=== PATIENT | male | born 1975 | race Caucasian/White ===

== ENCOUNTER 2019-12-31 10:26 | Inpatient (IN) | payer BC ==
[~2019-12-31] VITALS: Ht 180.3 cm; Wt 85.5 kg
--- NOTE | 2019-12-31 11:06 | NUR ---
Pt was seen at [facility] and they sent him here. Pt states that they told him his urine was okay, other than he was dehydrated.
--- NOTE | 2019-12-31 11:08 | NUR ---
Pt unable to obtain a urine sample at this time.
[2019-12-31] MEDS ORDERED: ketorolac tromethamine 15mg/ml inj. IV ONE (11:10)
[2019-12-31] MEDS ORDERED: normal saline 1000ml 1,000 ML IV ONE (11:10)
[2019-12-31 11:14] LABS: BASOPHILS % (AUTO) 0.3 % (0-1); EOSINOPHILS # (AUTO) 0.1 X10'3 (0-0.9); EOSINOPHILS % (AUTO) 0.9 % (0-6); HEMATOCRIT 44.6 % (42.0-52.0); HEMOGLOBIN 15.5 g/dl (14.0-17.9); LYMPHOCYTES # (AUTO) 1.1 X10'3 (1.1-4.8); LYMPHOCYTES % (AUTO) 9.6 % (21-51); MEAN CORPUSCULAR HEMOGLOBIN 31.5 PG (27.0-31.0); MEAN CORPUSCULAR HGB CONC 34.8 g/dL (33.0-36.5); MEAN CORPUSCULAR VOLUME 90.5 FL (78-98); MEAN PLATELET VOLUME 7.6 FL (7.4-10.4); MONOCYTES # (AUTO) 0.9 X10'3 (0-0.9); MONOCYTES % (AUTO) 7.8 % (2-12); NEUTROPHILS # (AUTO) 9.1 X10'3 (1.8-7.7); NEUTROPHILS % (AUTO) 81.4 % (42-75); PLATELET COUNT 249 X10'3 (140-440); RED BLOOD COUNT 4.93 X10'6 (4.70-6.10); RED CELL DISTRIBUTION WIDTH 12.3 % (11.5-14.5); WHITE BLOOD COUNT 11.2 X10'3 (4.5-11.0)
[2019-12-31 11:37] LABS: ALANINE AMINOTRANSFERASE 77 U/L (12-78); ALBUMIN 4.2 G/DL (3.4-5.0); ALBUMIN/GLOBULIN RATIO 1.1 (1.1-1.5); ALKALINE PHOSPHATASE 75 IU/L (46-116); ANION GAP 12 (8-16); ASPARTATE AMINO TRANSFERASE 28 U/L (10-37); BILIRUBIN,TOTAL 1.2 MG/DL (0.1-1.0); BLOOD UREA NITROGEN 13 MG/DL (7-18); BUN/CREATININE RATIO 10.7 (5.4-32.0); CALCIUM 8.7 MG/DL (8.5-10.1); CHLORIDE 104 MMOL/L (99-107); CREATININE 1.21 MG/DL (0.60-1.10); GLUCOSE 107 MG/DL (70-104); LIPASE 93 U/L (73-393); POTASSIUM 4.3 MMOL/L (3.5-5.1); SODIUM 139 MMOL/L (135-145); TOTAL CARBON DIOXIDE 22.8 MMOL/L (24-32); eGFR 65 ML/MIN
[2019-12-31] MEDS ORDERED: iohexol 300mg/ml 100ml inj. ONE (11:40)
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
[2019-12-31] MEDS ORDERED: metroNIDAZOLE-Flagyl 500mg/NS 100 ML IV STA (12:17)
[2019-12-31] MEDS ORDERED: CefTRIAXone/D5W-Rocephin 1gm 50 ML IV ONE (12:20)
[2019-12-31] MEDS ORDERED: morphine 5 MG/ML injection IV ONE (12:25)
[2019-12-31] MEDS ORDERED: ondansetron/PF 4mg/2ml inj IV ONE (12:25)
[2019-12-31] MEDS ORDERED: morphine 2 MG/ML inj. syringe IV ONE (12:40)
[2019-12-31] MEDS ORDERED: NO HOME MEDS (13:04)
--- NOTE | 2019-12-31 13:15 | NUR ---
Pt given a urinal to provide a urine specimen when he is able to void. Pt's IV fluid bolus is completed, first antibiotic is infusing and another is pending when the first is completed.
--- NOTE | 2019-12-31 13:21 | NUR ---
Pt reports increase in pain level again and is requesting additional medication. Dr. Busch notified of the pain. Order for additional morphine received.
[2019-12-31] MEDS ORDERED: morphine 4 MG/ML inj SYRINge IV ONE (13:25)
[2019-12-31] MEDS ORDERED: magnesium 4gm in 100ml NS 100 ML IV PRN (13:50)
[2019-12-31] MEDS ORDERED: HYDROmorphone inj. 0.5 MG/0.5 ML DISP.SYRIN IV PRN (13:50)
[2019-12-31] MEDS ORDERED: mag hydrox/Alum hydrox/simeth 30ml oral suspension PO PRN (13:50)
[2019-12-31] MEDS ORDERED: HYDROcodone/acetaminophen 5mg/325mg tablet PO PRN (13:50)
[2019-12-31] MEDS ORDERED: magnesium Cl slow-release 64mg tablet PO PRN (13:50)
[2019-12-31] MEDS ORDERED: HYDROmorphone 1 mg/ml syringe IV PRN (13:50)
[2019-12-31] MEDS ORDERED: magnesium 2GM in 50ml NS 50 ML IV PRN (13:50)
[2019-12-31] MEDS ORDERED: potassium Cl 20 mEq SR tablet PO PRN ×2 (13:50)
[2019-12-31] MEDS ORDERED: magnesium hydroxide 30ml (MOM) UD suspension PO PRN (13:50)
[2019-12-31] MEDS ORDERED: acetaminophen 325mg tablet PO PRN ×2 (13:50)
[2019-12-31] MEDS ORDERED: potassium CL 10mEq/100ml bag 100 ML IV PRN ×2 (13:50)
[2019-12-31 14:16] LABS: TROPONIN I < 0.04 NG/ML (0.0-0.05)
[2019-12-31] MEDS: normal saline 1000ml 1,000 ML IV SCH ×2 (14:16→23:54)
[2019-12-31 14:17] LABS: HEMOGLOBIN A1C 5.6 % (4.5-6.2)
[2019-12-31 14:51] LABS: CLARITY,URINE CLEAR (Clear); COLOR,URINE YELLOW (Yellow); GLUCOSE, URINE NEGATIVE (Neg); KETONES,URINE NEGATIVE (Neg); LEUKOCYTE ESTERASE ,URINE NEGATIVE (Neg); NITRITES, URINE NEGATIVE (Neg); OCCULT BLOOD,URINE NEGATIVE (Neg); PROTEIN,URINE NEGATIVE (Neg); UROBILINOGEN,URINE 0.2 E.U/dL (0.2-1.0)
[2019-12-31 14:54] LABS: UA COLLECTION TYPE CLN CATCH MIDSTREAM
[2019-12-31 15:31] VITALS: BP 130/91
--- NOTE | 2019-12-31 16:14 | NUR ---
Ultrasound department paged to get the abdominal ultrasound order done
--- NOTE | 2019-12-31 17:04 | NUR ---
Dr. Dykes requested that hospitalist order a HIDA scan d/t US test appears negative per US tech. Dr. Corona aware.
--- NOTE | 2019-12-31 17:21 | NUR ---
Dr. Siddiqui seen patient
[2019-12-31] MEDS ORDERED: piperacillin/tazo 3.375gm/50ml 50 ML IV SCH (17:25)
[2019-12-31] MEDS ORDERED: CADD PCA waste documentation MC SCH (17:25)
[2019-12-31] MEDS ORDERED: sincalide inj 0 MCG in normal saline 50ml IV soln 50 ML IV ONE (17:25)
--- NOTE | 2019-12-31 18:30 | NUR ---
Patient in room [facility]. I have received report from KIERA Morales and had the opportunity to ask questions and assume patient care.
--- NOTE | 2019-12-31 18:38 | NUR ---
Problems reprioritized. Patient report given, questions answered & plan of care reviewed with Shanna QURESHI.
[2019-12-31] MEDS: HYDROmorphone/NS 1 mg/ml CADD 50 ML IV SCH ×4 (18:51→23:00)
[2019-12-31 20:00] VITALS: BP 132/80
[2019-12-31] MEDS: K and/or MAG REPLACEMENT MC SCH (20:00)
[2019-12-31] MEDS: ondansetron/PF 4mg/2ml inj IV PRN (20:17)
[2019-12-31] MEDS ORDERED: temazepam 15mg capsule PO PRN (21:00)
[2019-12-31] MEDS: piperacillin/tazo 3.375gm/50ml 50 ML IV SCH (21:50)
[2020-01-01] VITALS (19 sets, daily range): BP systolic 96–154; BP diastolic 40–91
[2020-01-01] MEDS: HYDROmorphone/NS 1 mg/ml CADD 50 ML IV SCH ×12 (01:00→23:00)
[2020-01-01] MEDS: piperacillin/tazo 3.375gm/50ml 50 ML IV SCH ×3 (04:40→22:32)
[2020-01-01 05:37] LABS: BASOPHILS % (AUTO) 0.3 % (0-1); EOSINOPHILS % (AUTO) 0.2 % (0-6); HEMATOCRIT 37.6 % (42.0-52.0); HEMOGLOBIN 12.9 g/dl (14.0-17.9); LYMPHOCYTES % (AUTO) 14.9 % (21-51); MEAN CORPUSCULAR HEMOGLOBIN 31.7 PG (27.0-31.0); MEAN CORPUSCULAR HGB CONC 34.4 g/dL (33.0-36.5); MEAN CORPUSCULAR VOLUME 92.3 FL (78-98); MEAN PLATELET VOLUME 7.8 FL (7.4-10.4); MONOCYTES # (AUTO) 0.6 X10'3 (0-0.9); MONOCYTES % (AUTO) 8.6 % (2-12); PLATELET COUNT 195 X10'3 (140-440); RED BLOOD COUNT 4.07 X10'6 (4.70-6.10); RED CELL DISTRIBUTION WIDTH 12.3 % (11.5-14.5); WHITE BLOOD COUNT 6.6 X10'3 (4.5-11.0)
[2020-01-01 05:49] LABS: ALBUMIN 3.4 G/DL (3.4-5.0); ALBUMIN/GLOBULIN RATIO 1.1 (1.1-1.5); ALKALINE PHOSPHATASE 138 IU/L (46-116); ANION GAP 7 (8-16); BILIRUBIN,TOTAL 3.9 MG/DL (0.1-1.0); BLOOD UREA NITROGEN 12 MG/DL (7-18); BUN/CREATININE RATIO 9.9 (5.4-32.0); CALCIUM 7.6 MG/DL (8.5-10.1); CHLORIDE 105 MMOL/L (99-107); CHOL/HDL RATIO 2.3 (0.00-4.99); CHOLESTEROL 112 MG/DL (0-200); CREATININE 1.21 MG/DL (0.60-1.10); GLUCOSE 104 MG/DL (70-104); HDL CHOLESTEROL 48 MG/DL (35-60); LDL CHOLESTEROL 62 MG/DL (50-100); POTASSIUM 3.9 MMOL/L (3.5-5.1); SODIUM 137 MMOL/L (135-145); TOTAL CARBON DIOXIDE 24.9 MMOL/L (24-32); TOTAL PROTEIN 6.6 G/DL (6.4-8.2); TRIGLYCERIDES 41 MG/DL (20-135); eGFR 65 ML/MIN
[2020-01-01 05:51] LABS: ALANINE AMINOTRANSFERASE 1372 U/L (12-78); ASPARTATE AMINO TRANSFERASE 1329 U/L (10-37)
--- NOTE | 2020-01-01 06:00 | NUR ---
CADD pump turned off to prepare for patients Hida scan
--- NOTE | 2020-01-01 06:22 | NUR ---
Problems reprioritized. Patient report given, questions answered & plan of care reviewed with KIERA Morales.
--- NOTE | 2020-01-01 06:53 | NUR ---
Patient in room [facility]. I have received report from Shanna QURESHI and had the opportunity to ask questions and assume patient care.
--- NOTE | 2020-01-01 07:17 | NUR ---
Patient's Dilaudid CADD currently on hold to prepare for NM HIDA scan today approx. 12noon today. Patient verbalized understanding of the plan for today.
[2020-01-01] MEDS: K and/or MAG REPLACEMENT MC SCH ×2 (08:00→20:00)
[2020-01-01] MEDS ORDERED: SINCALIDE IV ONE (08:00)
[2020-01-01] MEDS ORDERED: NORMAL SALINE IV ONE (08:00)
[2020-01-01] MEDS: normal saline 1000ml 1,000 ML IV SCH ×2 (09:47→19:48)
[2020-01-01] MEDS: ondansetron/PF 4mg/2ml inj IV PRN (09:49)
[2020-01-01] MEDS ORDERED: ketorolac trometh. 30mg/ml inj. IV PRN (10:00)
--- NOTE | 2020-01-01 10:23 | NUR ---
Patient just left his room, went for MRCP. Patient received Toradol IV for pain
[2020-01-01 10:40] LABS: LIPASE 107 U/L (73-393)
[2020-01-01] MEDS ORDERED: BUPIVAcaine/PF 2.5 mg/ml (0.25%) 30ml vial ONE (16:15)
--- NOTE | 2020-01-01 16:25 | NUR ---
Patient went to OR. Report given to Mally QURESHI from PACU
[2020-01-01] MEDS ORDERED: famotidine/PF 10 mg/ml inj IV ONE (16:45)
[2020-01-01] MEDS ORDERED: midazolam 2 mg/2 ml injection ONE (16:48)
[2020-01-01] MEDS ORDERED: ringers solution, lacted 1,000 ML IV ONE (16:59)
[2020-01-01] MEDS ORDERED: ringers solution, lacted 1,000 ML IV SCH ×2 (16:59→17:27)
[2020-01-01] MEDS ORDERED: hydrALAZINE 20mg/ml inj. IV PRN (17:00)
[2020-01-01] MEDS ORDERED: ondansetron/PF 4mg/2ml inj IV PRN ×2 (17:00→17:30)
[2020-01-01] MEDS ORDERED: labetalol 20mg/4ml (5mg/ml) syringe IV PRN (17:00)
[2020-01-01] MEDS ORDERED: fentaNYL/PF 50MCG/1 ML 2ML syringe IV PRN ×2 (17:00)
[2020-01-01] MEDS ORDERED: morphine 4 MG/ML inj SYRINge IV PRN ×2 (17:00→17:30)
[2020-01-01] MEDS ORDERED: morphine 2 MG/ML inj. syringe IV PRN ×2 (17:00→17:30)
[2020-01-01] MEDS ORDERED: fentaNYL /PF 50mcg/ml 5ml ampule ONE (17:06)
[2020-01-01] MEDS ORDERED: propofol inj 20 ML IV ONE (17:06)
[2020-01-01] MEDS ORDERED: LIDOcaine 2% (20mg/ml) 5ml vial ONE (17:06)
[2020-01-01] MEDS ORDERED: dexamethasone sod phosphate 4mg/ml inj. ONE (17:06)
[2020-01-01] MEDS ORDERED: ceFOXitin 1000 MG inj ONE ×2 (17:06)
[2020-01-01] MEDS ORDERED: 0.9 % SODIUM CHLORIDE 10 ML VIAL ONE ×2 (17:06)
[2020-01-01] MEDS ORDERED: rocuronium 10mg/ml inj IV ONE (17:07)
[2020-01-01] MEDS ORDERED: ondansetron/PF 4mg/2ml inj ONE (17:07)
[2020-01-01] MEDS ORDERED: acetaminophen 1,000mg/100ml IV 100 ML IV ONE (17:30)
[2020-01-01] MEDS ORDERED: meperidine/PF 25mg/ml syringe IV PRN ×3 (17:30)
[2020-01-01] MEDS ORDERED: proCHLORperazine 10 MG/2 ml inj IV PRN (17:30)
[2020-01-01] MEDS ORDERED: morphine 10mg/ml inj. ONE (17:31)
[2020-01-01] MEDS ORDERED: neostigmine methylsulfate 1 MG/ML 10ml vial ONE (17:52)
[2020-01-01] MEDS ORDERED: glycopyrrolate 0.2mg/ml inj ONE (17:52)
--- NOTE | 2020-01-01 18:20 | NUR ---
Received from OR via SURGICAL BED, accompanied by Anesthesiologist GUILLE and report given by Anesthesiolgist. PATIENT WITH 20G PIV IN LEFT UE RUNNING LR AT 100. 4 ABDOMINAL LAP SITES PRESENT AND ARE CDI. VSS. Addendum: 01/01/20 at 1827 by Mick Maddox RN, RN Amended: Links added.
--- NOTE | 2020-01-01 18:51 | NUR ---
Problems reprioritized. Patient report given, questions answered & plan of care reviewed with Billie QURESHI.
--- NOTE | 2020-01-01 18:53 | NUR ---
Patient in room [facility]. I have received report from KIERA Guzman and had the opportunity to ask questions and assume patient care.
--- NOTE | 2020-01-01 18:56 | NUR ---
I have received report from Mick immigration associate and had the opportunity to ask questions and assume patient care.
--- NOTE | 2020-01-01 19:27 | NUR ---
PATIENT WITH VSS. TRANSFERED UP TO THE FLOOR. KIERA LÓPEZ PRESENT TO ACCEPT CARE. VSS. PATIENT DENIES PAIN. DRESSINGS TO ABDOMEN X4 ARE STILL CDI. Addendum: 01/01/20 at 8 by Mick Maddox RN, RN Amended: Links added.
--- NOTE | 2020-01-01 19:30 | NUR ---
Patient back in room from recovery.
[2020-01-02 00:37] VITALS: BP 140/79
[2020-01-02] MEDS: HYDROmorphone/NS 1 mg/ml CADD 50 ML IV SCH ×4 (01:00→07:00)
[2020-01-02 04:15] VITALS: BP 125/82
[2020-01-02] MEDS: piperacillin/tazo 3.375gm/50ml 50 ML IV SCH ×2 (05:41→14:23)
[2020-01-02 06:09] LABS: BASOPHILS % (AUTO) 0.1 % (0-1); EOSINOPHILS % (AUTO) 0 % (0-6); HEMATOCRIT 38.1 % (42.0-52.0); LYMPHOCYTES # (AUTO) 0.4 X10'3 (1.1-4.8); LYMPHOCYTES % (AUTO) 4.1 % (21-51); MEAN CORPUSCULAR HEMOGLOBIN 31.4 PG (27.0-31.0); MEAN CORPUSCULAR HGB CONC 34.1 g/dL (33.0-36.5); MEAN CORPUSCULAR VOLUME 92.2 FL (78-98); MEAN PLATELET VOLUME 8.1 FL (7.4-10.4); MONOCYTES # (AUTO) 0.3 X10'3 (0-0.9); MONOCYTES % (AUTO) 2.9 % (2-12); NEUTROPHILS % (AUTO) 92.9 % (42-75); PLATELET COUNT 232 X10'3 (140-440); RED BLOOD COUNT 4.13 X10'6 (4.70-6.10); RED CELL DISTRIBUTION WIDTH 12.2 % (11.5-14.5); WHITE BLOOD COUNT 10.8 X10'3 (4.5-11.0)
[2020-01-02 06:21] LABS: ALBUMIN 3.2 G/DL (3.4-5.0); ALBUMIN/GLOBULIN RATIO 0.9 (1.1-1.5); ALKALINE PHOSPHATASE 127 IU/L (46-116); ANION GAP 8 (8-16); ASPARTATE AMINO TRANSFERASE 495 U/L (10-37); BILIRUBIN,TOTAL 1.8 MG/DL (0.1-1.0); BLOOD UREA NITROGEN 13 MG/DL (7-18); BUN/CREATININE RATIO 11.6 (5.4-32.0); CALCIUM 7.9 MG/DL (8.5-10.1); CHLORIDE 104 MMOL/L (99-107); CREATININE 1.12 MG/DL (0.60-1.10); GLUCOSE 155 MG/DL (70-104); MAGNESIUM 2.3 MG/DL (1.5-2.4); POTASSIUM 4.2 MMOL/L (3.5-5.1); SODIUM 136 MMOL/L (135-145); TOTAL CARBON DIOXIDE 24.3 MMOL/L (24-32); TOTAL PROTEIN 6.8 G/DL (6.4-8.2); eGFR 72 ML/MIN
[2020-01-02 06:23] LABS: ALANINE AMINOTRANSFERASE 1083 U/L (12-78)
[2020-01-02] MEDS: normal saline 1000ml 1,000 ML IV SCH (06:26)
--- NOTE | 2020-01-02 06:27 | NUR ---
Problems reprioritized. Patient report given, questions answered & plan of care reviewed with KIERA Aranda.
[2020-01-02] MEDS: K and/or MAG REPLACEMENT MC SCH (06:28)
[2020-01-02 07:00] VITALS: BP 116/65
[2020-01-02 11:00] VITALS: BP 145/79
[2020-01-02] MEDS: HYDROcodone/acetaminophen 10/325mg tab PO PRN ×2 (11:04→14:36)
[2020-01-02] MEDS ORDERED: OXYC-150 PO (12:57)
[2020-01-02] MEDS ORDERED: CIPR-259 PO (16:16)
--- NOTE | 2020-01-02 17:23 | NUR ---
PT DISCHARGED IN STABLE CONDITION. LEFT FACILITY IN PRIVATE VEHICLE. IV DC CANULA INTACT. ALL BELONGINGS IN HAND. FOLLOW UP INSTRUCTIONS GIVEN, ALL QUESTIONS ANSWERED. Addendum: 01/02/20 at 1724 by Harika Rios RN Amended: Links added.
[2020-01-03 09:10] LABS: HBSAG SCREEN Negative (Negative); HEP A AB, IGM Negative (Negative); HEPATITIS C ANTIBODY <0.1 s/co ratio (0.0-0.9)
== END 2020-01-02 17:15 | disposition home or self-care (01) | DRG 418 ==
LOC: ER 10:27 → ED HOLD 13:48 → SUR 3N 15:44
PROVIDERS: ADMIT Family Medicine; ATTEND Family Medicine
PROC: BW211ZZ Computerized Tomography (CT Scan) of Abdomen and Pelvis using Low Osmolar Contrast (ICD-10-PCS; 2019-12-31)
PROC: CF1C1ZZ Planar Nuclear Medicine Imaging of Hepatobiliary System, All using Technetium 99m (Tc-99m) (ICD-10-PCS; 2020-01-01)
PROC: 0FT44ZZ Resection of Gallbladder, Percutaneous Endoscopic Approach (ICD-10-PCS; principal; 2020-01-01 16:40)
DX: K81.0 Acute cholecystitis (principal); N17.9 Acute kidney failure, unspecified; R74.0 Nonspecific elevation of levels of transaminase and lactic acid dehydrogenase [LDH]; D64.9 Anemia, unspecified; N18.9 Chronic kidney disease, unspecified
CPT/HCPCS: 99285; Z7506; Z7508; 36415; 74177; 74181; 76700; 78226; 80053; 80061; 80074; 81003; 82948; 83036; 83690; 83735; 84484; 85025; 85610; 87081; 93005; A4215; A4618; A7000; A9537; G0378; J0131; J0694; J0696; J1100; J1170; J1885; J2001; J2250; J2270; J2405; J2543; J2704; J2710; J3010; J3490; J7030; J7120; Q9967

== ENCOUNTER 2021-09-20 08:33 | Emergency (ER) | payer BC, SELFPAY ==
[~2021-09-20] VITALS: Ht 180.3 cm; Wt 85.5 kg
[~2021-09-20 08:33] MED LIST: OXYC-150 PO
[2021-09-20 09:46] LABS: BASOPHILS # (AUTO) 0.1 X10'3 (0-0.2); BASOPHILS % (AUTO) 0.9 % (0-1); EOSINOPHILS # (AUTO) 0.5 X10'3 (0-0.9); EOSINOPHILS % (AUTO) 7.5 % (0-6); HEMATOCRIT 43.1 % (42.0-52.0); LYMPHOCYTES # (AUTO) 2.1 X10'3 (1.1-4.8); LYMPHOCYTES % (AUTO) 34.4 % (21-51); MEAN CORPUSCULAR HEMOGLOBIN 31.6 PG (27.0-31.0); MEAN CORPUSCULAR HGB CONC 34.7 g/dL (33.0-36.5); MEAN CORPUSCULAR VOLUME 90.8 FL (78-98); MEAN PLATELET VOLUME 7.3 FL (7.4-10.4); MONOCYTES # (AUTO) 0.5 X10'3 (0-0.9); MONOCYTES % (AUTO) 8.6 % (2-12); NEUTROPHILS % (AUTO) 48.6 % (42-75); PLATELET COUNT 240 X10'3 (140-440); RED BLOOD COUNT 4.74 X10'6 (4.70-6.10); RED CELL DISTRIBUTION WIDTH 12.4 % (11.5-14.5); WHITE BLOOD COUNT 6.2 X10'3 (4.5-11.0)
[2021-09-20 09:55] VITALS: BP 182/130
[2021-09-20 10:08] LABS: GLUCOSE 103 MG/DL (70-104); SODIUM 141 MMOL/L (135-145)
[2021-09-20 10:17] LABS: CLARITY,URINE CLEAR (Clear); COLOR,URINE YELLOW (Yellow); GLUCOSE, URINE NEGATIVE (Neg); KETONES,URINE NEGATIVE (Neg); LEUKOCYTE ESTERASE ,URINE NEGATIVE (Neg); NITRITES, URINE NEGATIVE (Neg); OCCULT BLOOD,URINE NEGATIVE (Neg); PROTEIN,URINE NEGATIVE (Neg); UROBILINOGEN,URINE 0.2 E.U/dL (0.2-1.0)
[2021-09-20 10:20] LABS: UA COLLECTION TYPE CLN CATCH MIDSTREAM
[2021-09-20 10:29] LABS: ANION GAP 13 (8-16); BILIRUBIN,TOTAL 0.8 MG/DL (0.1-1.0); BLOOD UREA NITROGEN 18 MG/DL (7-18); CALCIUM 8.7 MG/DL (8.5-10.1); CHLORIDE 104 MMOL/L (99-107); TOTAL CARBON DIOXIDE 24.3 MMOL/L (24-32); eGFR > 90 ML/MIN
[2021-09-20 10:30] LABS: ALANINE AMINOTRANSFERASE 71 U/L (12-78); ALBUMIN 4.5 G/DL (3.4-5.0); ALBUMIN/GLOBULIN RATIO 1.2 (1.1-1.5); ALKALINE PHOSPHATASE 62 IU/L (46-116); ASPARTATE AMINO TRANSFERASE 34 U/L (10-37); LIPASE 122 U/L (73-393); TOTAL PROTEIN 8.3 G/DL (6.4-8.2)
[2021-09-20] MEDS: morphine 4 MG/ML inj SYRINge IV ONE (10:51)
== END 2021-09-20 11:17 | disposition home or self-care (01) ==
LOC: ER 08:34
DX: K40.90 Unilateral inguinal hernia, without obstruction or gangrene, not specified as recurrent (principal)
CPT/HCPCS: 36415; 80053; 81003; 83690; 85025; 85651; 86140; 99283

== ENCOUNTER 2021-09-24 05:00 | Inpatient (IN) | payer BC ==
[2021-09-24] VITALS (12 sets, daily range): BP systolic 130–143; BP diastolic 69–94
[2021-09-24] MEDS ORDERED: ondansetron/PF 4mg/2ml inj IV PRN ×2 (05:45→09:00)
[2021-09-24] MEDS ORDERED: potassium Cl 20 mEq SR tablet PO PRN ×2 (05:45)
[2021-09-24] MEDS ORDERED: magnesium 2GM in 50ml NS 50 ML IV PRN (05:45)
[2021-09-24] MEDS ORDERED: magnesium 4gm in 100ml NS 100 ML IV PRN (05:45)
[2021-09-24] MEDS ORDERED: potassium CL 10mEq/100ml bag 100 ML IV PRN (05:45)
[2021-09-24] MEDS ORDERED: normal saline 1000ml 1,000 ML IV SCH (05:45)
[2021-09-24] MEDS ORDERED: morphine 2 MG/ML inj. syringe IV PRN ×3 (05:45→09:00)
[2021-09-24] MEDS ORDERED: magnesium Cl slow-release 64mg tablet PO PRN (05:45)
[2021-09-24 06:15] LABS: BASOPHILS # (AUTO) 0.1 X10'3 (0-0.2); BASOPHILS % (AUTO) 1.1 % (0-1); EOSINOPHILS # (AUTO) 0.3 X10'3 (0-0.9); EOSINOPHILS % (AUTO) 5.8 % (0-6); HEMATOCRIT 42.1 % (42.0-52.0); HEMOGLOBIN 14.7 g/dl (14.0-17.9); LYMPHOCYTES # (AUTO) 2.3 X10'3 (1.1-4.8); LYMPHOCYTES % (AUTO) 39.8 % (21-51); MEAN CORPUSCULAR HGB CONC 34.9 g/dL (33.0-36.5); MEAN PLATELET VOLUME 7.4 FL (7.4-10.4); MONOCYTES # (AUTO) 0.6 X10'3 (0-0.9); MONOCYTES % (AUTO) 9.6 % (2-12); NEUTROPHILS # (AUTO) 2.6 X10'3 (1.8-7.7); NEUTROPHILS % (AUTO) 43.7 % (42-75); PLATELET COUNT 287 X10'3 (140-440); RED BLOOD COUNT 4.73 X10'6 (4.70-6.10); RED CELL DISTRIBUTION WIDTH 12.5 % (11.5-14.5); WHITE BLOOD COUNT 5.9 X10'3 (4.5-11.0)
[2021-09-24 06:24] LABS: ALANINE AMINOTRANSFERASE 79 U/L (12-78); ALBUMIN 4.4 G/DL (3.4-5.0); ALBUMIN/GLOBULIN RATIO 1.3 (1.1-1.5); ALKALINE PHOSPHATASE 66 IU/L (46-116); ANION GAP 9 (8-16); ASPARTATE AMINO TRANSFERASE 39 U/L (10-37); BILIRUBIN,TOTAL 0.6 MG/DL (0.1-1.0); BLOOD UREA NITROGEN 18 MG/DL (7-18); BUN/CREATININE RATIO 19.6 (5.4-32.0); CALCIUM 9.1 MG/DL (8.5-10.1); CHLORIDE 105 MMOL/L (99-107); CREATININE 0.92 MG/DL (0.60-1.10); GLUCOSE 102 MG/DL (70-104); MAGNESIUM 2.2 MG/DL (1.5-2.4); POTASSIUM 4.1 MMOL/L (3.5-5.1); SODIUM 139 MMOL/L (135-145); TOTAL CARBON DIOXIDE 25.1 MMOL/L (24-32); TOTAL PROTEIN 7.8 G/DL (6.4-8.2); eGFR 89 ML/MIN
[2021-09-24] MEDS ORDERED: BUPIVAcaine 0.5% inj/PF 30 ML ONE (07:52)
[2021-09-24] MEDS ORDERED: K and/or MAG REPLACEMENT MC SCH (08:00)
[2021-09-24] MEDS ORDERED: losartan 50mg tablet PO SCH (08:00)
[2021-09-24] MEDS ORDERED: morphine 4 MG/ML inj SYRINge IV PRN (09:00)
[2021-09-24] MEDS ORDERED: proCHLORperazine 10 MG/2 ml inj IV PRN (09:00)
[2021-09-24] MEDS ORDERED: BUPIVAcaine 0.5% W/EPI /PF 30ml vial IJ ONE (09:00)
[2021-09-24] MEDS ORDERED: meperidine/PF 25mg/ml syringe IV PRN ×3 (09:00)
[2021-09-24] MEDS ORDERED: ringers solution, lacted 1,000 ML IV SCH (09:00)
[2021-09-24] MEDS ORDERED: midazolam 1 mg/ML 2ml injection ONE (09:03)
[2021-09-24] MEDS ORDERED: FENTANYL CITRATE/PF 50 MCG/1 ML VIAL ONE ×3 (09:03→10:27)
[2021-09-24] MEDS ORDERED: LIDOcaine 2% (20mg/ml) 5ml vial ONE (09:04)
[2021-09-24] MEDS ORDERED: rocuronium 10mg/ml inj IV ONE ×2 (09:04→10:46)
[2021-09-24] MEDS ORDERED: propofol inj 20 ML IV ONE (09:04)
[2021-09-24] MEDS ORDERED: ondansetron/PF 4mg/2ml inj ONE (09:07)
[2021-09-24] MEDS ORDERED: sevoflurane 250ml liquid IH ONE (09:07)
[2021-09-24] MEDS ORDERED: dexamethasone sod phosphate 10mg/ml inj ONE (09:07)
[2021-09-24] MEDS ORDERED: cefazolin/dext.iso 2,000MG/50 ML BAG IV ONE (09:07)
[2021-09-24] MEDS ORDERED: glycopyrrolate 0.2mg/ml inj ONE (10:49)
[2021-09-24] MEDS ORDERED: neostigmine methylsulfate 1 MG/ML 10ml vial ONE (10:49)
[2021-09-24] MEDS ORDERED: meperidine/PF 25mg/ml syringe ONE (11:04)
--- NOTE | 2021-09-24 11:05 | NUR ---
Received from OR via ERIKA, accompanied by Anesthesiologist RANJITH and report given by Anesthesiolgist. PT DROWSY, OXYGENATING WELL ON 10 LPM O2 VIA MASK, NO RESP DISTRESS NOTED. DENIES NAUSEA, C/O MODERATE INCISIONAL PAIN. MEDICATED PRN, SEE EMAR. 4 ABD TROCAR SITES, POWER TOOL REPAIRER WITH DERMABOND. WELL APPROXIMATED. VSS.
[2021-09-24] MEDS ORDERED: HYDROcodone/acetaminophen 10/325mg tab PO ONE (11:50)
[2021-09-24] MEDS ORDERED: acetaminophen 1,000mg/100ml IV 100 ML IV ONE (11:50)
[2021-09-24] MEDS ORDERED: ketorolac trometh. 30mg/ml inj. IV ONE (11:50)
--- NOTE | 2021-09-24 13:05 | NUR ---
PT WAS ABLE TO AMBULATE AD ROMAIN AND VOIDED WITHOUT DIFFICULTY. PAIN LEVEL TRENDING DOWN AFTER MEDS GIVEN IN PACU. TOLERATING PO FLUIDS WELL. VSS. DC INSTRUCTIONS EXPLAINED TO PT, HE VERBALIZED UNDERSTANDING. DCD IN STABLE CONDITION, TAKEN TO CAR VIA WC.
== END 2021-09-24 13:26 | disposition home or self-care (01) | DRG 337 ==
LOC: ED HOLD 05:00 → UNDOADMIN 05:00 → ED HOLD 05:31 → PAS IN 05:57 → ED HOLD 06:20 → PAS IN 06:20 → PACU 11:05 → ED HOLD 11:05 → UNDODISIN 13:26
PROVIDERS: ADMIT Surgery; ATTEND Internal Medicine
PROC: 0DNW4ZZ Release Peritoneum, Percutaneous Endoscopic Approach (ICD-10-PCS; 2021-09-24)
PROC: 8E0W4CZ Robotic Assisted Procedure of Trunk Region, Percutaneous Endoscopic Approach (ICD-10-PCS; 2021-09-24)
PROC: 0YU64JZ Supplement Left Inguinal Region with Synthetic Substitute, Percutaneous Endoscopic Approach (ICD-10-PCS; principal; 2021-09-24 09:07)
DX: K40.30 Unilateral inguinal hernia, with obstruction, without gangrene, not specified as recurrent (principal); Z20.822 Contact with and (suspected) exposure to COVID-19; I10 Essential (primary) hypertension; K66.0 Peritoneal adhesions (postprocedural) (postinfection); Z79.899 Other long term (current) drug therapy
CPT/HCPCS: Z7506; Z7508; 36415; 80053; 83735; 85025; 87635; A4215; A4618; C1758; C1781; J0131; J0690; J1100; J1885; J2175; J2250; J2405; J2704; J2710; J3010; J3490; S0020

== ENCOUNTER 2022-02-12 17:50 | Emergency (ER) | payer BC ==
[~2022-02-12] VITALS: Ht 180.3 cm; Wt 85.0 kg
[2022-02-12 18:29] LABS: BASOPHILS % (AUTO) 0.7 % (0-1); EOSINOPHILS # (AUTO) 0.3 X10'3 (0-0.9); EOSINOPHILS % (AUTO) 4.4 % (0-6); HEMATOCRIT 42.5 % (42.0-52.0); HEMOGLOBIN 14.7 g/dl (14.0-17.9); LYMPHOCYTES % (AUTO) 32.7 % (21-51); MEAN CORPUSCULAR HEMOGLOBIN 31.5 PG (27.0-31.0); MEAN CORPUSCULAR HGB CONC 34.6 g/dL (33.0-36.5); MEAN PLATELET VOLUME 7.2 FL (7.4-10.4); MONOCYTES # (AUTO) 0.6 X10'3 (0-0.9); MONOCYTES % (AUTO) 9.7 % (2-12); NEUTROPHILS # (AUTO) 3.3 X10'3 (1.8-7.7); NEUTROPHILS % (AUTO) 52.5 % (42-75); PLATELET COUNT 283 X10'3 (140-440); RED BLOOD COUNT 4.68 X10'6 (4.70-6.10); RED CELL DISTRIBUTION WIDTH 12.8 % (11.5-14.5); WHITE BLOOD COUNT 6.2 X10'3 (4.5-11.0)
[2022-02-12 18:42] LABS: ALANINE AMINOTRANSFERASE 174 U/L (12-78); ALBUMIN 4.3 G/DL (3.4-5.0); ALBUMIN/GLOBULIN RATIO 1.2 (1.1-1.5); ALKALINE PHOSPHATASE 69 IU/L (46-116); ANION GAP 16 (8-16); ASPARTATE AMINO TRANSFERASE 72 U/L (10-37); BILIRUBIN,TOTAL 0.5 MG/DL (0.1-1.0); BLOOD UREA NITROGEN 14 MG/DL (7-18); BUN/CREATININE RATIO 13.5 (5.4-32.0); CALCIUM 8.7 MG/DL (8.5-10.1); CHLORIDE 102 MMOL/L (99-107); CREATININE 1.04 MG/DL (0.60-1.10); GLUCOSE 100 MG/DL (70-104); POTASSIUM 3.7 MMOL/L (3.5-5.1); SODIUM 141 MMOL/L (135-145); TOTAL CARBON DIOXIDE 22.6 MMOL/L (24-32); TOTAL PROTEIN 7.8 G/DL (6.4-8.2); eGFR 77 ML/MIN
[2022-02-12] MEDS ORDERED: METO1TAB12 PO (23:06)
[2022-02-12] MEDS ORDERED: OLME-9 (23:06)
[2022-02-12] MEDS ORDERED: METO50TA17 PO ×2 (23:19→23:20)
[2022-02-12 23:38] VITALS: BP 164/105
== END 2022-02-12 23:40 | disposition home or self-care (01) ==
LOC: ER 17:51
DX: R07.9 Chest pain, unspecified (principal); I10 Essential (primary) hypertension; F41.9 Anxiety disorder, unspecified
CPT/HCPCS: 36415; 71045; 80053; 83880; 84484; 85025; 93005; 99285

== ENCOUNTER 2022-03-24 07:57 | Outpatient (CLI) | payer BC ==
[~2022-03-24] VITALS: Ht 185.4 cm; Wt 85.4 kg
[~2022-03-24 07:57] MED LIST changes: +ACET650T58 PO; +HYDR-3965 PO; +IBUP-1985 PO; +METO1TAB12 PO; +METO50TA17 PO; +OLME-9; -OXYC-150 PO
[2022-03-24] MEDS ORDERED: aminophylline 500mg/20ml vial IV ONE (09:50)
[2022-03-24 10:54] VITALS: BP 134/84
[2022-03-24] MEDS: regadenoson 0.4mg/5ml syringe IV ONE (10:56)
[2022-03-24 11:03] VITALS: BP 144/89
[2022-03-24 11:04] VITALS: BP 156/86
[2022-03-24 11:05] VITALS: BP 136/82
[2022-03-24 11:06] VITALS: BP 143/86
[2022-03-24 11:07] VITALS: BP 138/81
== END 2022-03-24 23:59 | disposition home or self-care (01) ==
LOC: RAD 07:57
PROVIDERS: ATTEND Internal Medicine Cardiovascular Disease
DX: I51.89 Other ill-defined heart diseases (principal); R06.02 Shortness of breath
CPT/HCPCS: 78452; 93017; A9500; J0280; J2785

== ENCOUNTER 2022-03-31 11:46 | Day surgery (SDC) | payer BC ==
[2022-03-29 10:27] LABS: BASOPHILS % (AUTO) 0.8 % (0-1); EOSINOPHILS # (AUTO) 0.3 X10'3 (0-0.9); EOSINOPHILS % (AUTO) 5.5 % (0-6); LYMPHOCYTES # (AUTO) 2.4 X10'3 (1.1-4.8); MEAN CORPUSCULAR HGB CONC 35.4 g/dL (33.0-36.5); MEAN CORPUSCULAR VOLUME 90.3 FL (78-98); MEAN PLATELET VOLUME 7.2 FL (7.4-10.4); MONOCYTES # (AUTO) 0.6 X10'3 (0-0.9); MONOCYTES % (AUTO) 10.4 % (2-12); NEUTROPHILS # (AUTO) 2.2 X10'3 (1.8-7.7); NEUTROPHILS % (AUTO) 39.3 % (42-75); PRE OP HEMATOCRIT 36.7 % (42.0-52.0); PRE OP PLATELET COUNT 306 X10'3 (140-440); RED BLOOD COUNT 4.06 X10'6 (4.70-6.10); RED CELL DISTRIBUTION WIDTH 12.4 % (11.5-14.5)
[2022-03-29 10:34] LABS: ALKALINE PHOSPHATASE 75 IU/L (46-116); BLOOD UREA NITROGEN 20 MG/DL (7-18); BUN/CREATININE RATIO 19.6 (5.4-32.0); CALCIUM 9.1 MG/DL (8.5-10.1); CHLORIDE 100 MMOL/L (99-107); CREATININE 1.02 MG/DL (0.60-1.10); PRE OP ALT 70 U/L (30-65); PRE OP ANION GAP 10 (8-16); PRE OP AST 33 U/L (10-37); PRE OP BILIRUB, TOTAL 0.5 MG/DL (0.0-1.0); PRE OP GLUCOSE 105 MG/DL (70-104); PRE OP POTASSIUM 3.7 MMOL/L (3.4-5.1); PRE OP SODIUM 138 MMOL/L (135-145); TOTAL CARBON DIOXIDE 27.7 MMOL/L (24-32); TOTAL PROTEIN 7.9 G/DL (6.4-8.2); eGFR 79 ML/MIN
[~2022-03-31] VITALS: Ht 180.3 cm; Wt 83.2 kg
[2022-03-31] VITALS (10 sets, daily range): BP systolic 109–143; BP diastolic 65–88
[~2022-03-31 11:46] MED LIST changes: -ACET650T58 PO; +ALPR0.255 PO; +CLON0.1T PO; +DOCUMENT DATE & TIME OF BETA-BLOCKER PO ONE; -HYDR-3965 PO; -IBUP-1985 PO; +METO-539 PO; -METO1TAB12 PO; -METO50TA17 PO; +MULT-1085 PO; -OLME-9; +OLME20TA23 PO; +VITAMIN D3; +ceFAZolin inj. 2,000 MG in dextrose 5%-water 100 ML IV ONE; +famotidine 20mg tablet PO ONE; +ringers solution, lacted 1,000 ML IV SCH
[2022-03-31] MEDS ORDERED: cloNIDine hcl/PF 100mcg/ml inj ONE (14:59)
[2022-03-31] MEDS ORDERED: ROPIVAcaine 0.5% (5mg/ml) 30ml vial ONE (14:59)
[2022-03-31] MEDS ORDERED: fentaNYL/PF 50MCG/1 ML 2ML syringe ONE ×2 (15:06→15:39)
[2022-03-31] MEDS ORDERED: propofol inj 20 ML IV ONE (15:07)
[2022-03-31] MEDS ORDERED: midazolam 1 mg/ML 2ml injection ONE (15:07)
[2022-03-31] MEDS ORDERED: BUPIVAcaine/PF 2.5 mg/ml (0.25%) 30ml vial ONE (15:14)
[2022-03-31] MEDS ORDERED: sevoflurane 250ml liquid IH ONE (15:19)
--- NOTE | 2022-03-31 16:48 | NUR ---
Received from OR via ERIKA, accompanied by Anesthesiologist HEAVEN and OR NURSE report given by Anesthesiolgist. PT IS DROWSY AND NOT EASILY AROUSED. ARTIFICIAL ORAL AIRWAY IN PLACE. NURSE AT BEDSIDE CHARTING TO MAINTAIN CLOSE CONTACT WITH PT UPON WAKING. LEFT ELBOW REPAIRED. 20G IN RT HAND. Addendum: 03/31/22 at 1659 by Kalina Morrell RN Amended: Links added.
[2022-03-31] MEDS ORDERED: meperidine/PF 25mg/ml syringe IV PRN ×3 (16:50)
[2022-03-31] MEDS ORDERED: morphine 2 MG/ML inj. syringe IV PRN (16:50)
[2022-03-31] MEDS ORDERED: morphine 4 MG/ML inj SYRINge IV PRN (16:50)
[2022-03-31] MEDS ORDERED: ringers solution, lacted 1,000 ML IV SCH (16:50)
[2022-03-31] MEDS ORDERED: proCHLORperazine 10 MG/2 ml inj IV PRN (16:50)
[2022-03-31] MEDS ORDERED: ondansetron/PF 4mg/2ml inj IV PRN (16:50)
[2022-03-31] MEDS ORDERED: meperidine/PF 25mg/ml syringe ONE (17:10)
[2022-03-31] MEDS ORDERED: HYDROcodone/acetaminophen 5mg/325mg tablet PO ONE (17:50)
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
== END 2022-03-31 18:08 | disposition home or self-care (01) ==
LOC: PAS 11:46
PROVIDERS: ATTEND Orthopaedic Surgery Hand Surgery
DX: S52.022A Displaced fracture of olecranon process without intraarticular extension of left ulna, initial encounter for closed fracture (principal); F41.9 Anxiety disorder, unspecified; W19.XXXA Unspecified fall, initial encounter; Y93.89 Activity, other specified; Y92.89 Other specified places as the place of occurrence of the external cause; Y99.8 Other external cause status; Z79.899 Other long term (current) drug therapy; G89.18 Other acute postprocedural pain; Z98.890 Other specified postprocedural states; Z90.49 Acquired absence of other specified parts of digestive tract; Z87.891 Personal history of nicotine dependence
CPT/HCPCS: 24685; 36415; 64415; 73070; 76942; 80053; 82948; 85025; A6222; C1713; J0690; J0735; J2175; J2250; J2704; J2795; J3010; J3490; J7030; J7060; J7120; Z7506; Z7508; Z7512; 76000; A4215; A4565; A4618; A6446; A6449; A7000

== ENCOUNTER 2022-05-06 11:34 | Emergency (ER) | payer BC ==
[~2022-05-06] VITALS: Ht 180.3 cm; Wt 84.1 kg
[~2022-05-06 11:34] MED LIST changes: -DOCUMENT DATE & TIME OF BETA-BLOCKER PO ONE; -ceFAZolin inj. 2,000 MG in dextrose 5%-water 100 ML IV ONE; -famotidine 20mg tablet PO ONE; -ringers solution, lacted 1,000 ML IV SCH
[2022-05-06 11:45] VITALS: BP 145/93
[2022-05-06 12:29] LABS: BASOPHILS # (AUTO) 0.1 X10'3 (0-0.2); BASOPHILS % (AUTO) 1.1 % (0-1); EOSINOPHILS # (AUTO) 0.3 X10'3 (0-0.9); HEMATOCRIT 39.9 % (42.0-52.0); HEMOGLOBIN 13.9 g/dl (14.0-17.9); LYMPHOCYTES # (AUTO) 1.8 X10'3 (1.1-4.8); LYMPHOCYTES % (AUTO) 31.4 % (21-51); MEAN CORPUSCULAR HEMOGLOBIN 31.6 PG (27.0-31.0); MEAN CORPUSCULAR HGB CONC 34.9 g/dL (33.0-36.5); MEAN CORPUSCULAR VOLUME 90.4 FL (78-98); MEAN PLATELET VOLUME 7.3 FL (7.4-10.4); MONOCYTES # (AUTO) 0.5 X10'3 (0-0.9); MONOCYTES % (AUTO) 9.6 % (2-12); NEUTROPHILS % (AUTO) 52.9 % (42-75); PLATELET COUNT 295 X10'3 (140-440); RED BLOOD COUNT 4.41 X10'6 (4.70-6.10); RED CELL DISTRIBUTION WIDTH 12.6 % (11.5-14.5); WHITE BLOOD COUNT 5.6 X10'3 (4.5-11.0)
[2022-05-06 12:33] LABS: ALANINE AMINOTRANSFERASE 53 U/L (12-78); ALBUMIN 3.9 G/DL (3.4-5.0); ALBUMIN/GLOBULIN RATIO 1.1 (1.1-1.5); ALKALINE PHOSPHATASE 88 IU/L (46-116); ANION GAP 8 (8-16); ASPARTATE AMINO TRANSFERASE 32 U/L (10-37); BILIRUBIN,TOTAL 0.4 MG/DL (0.1-1.0); BLOOD UREA NITROGEN 16 MG/DL (7-18); BUN/CREATININE RATIO 16.2 (5.4-32.0); CALCIUM 8.7 MG/DL (8.5-10.1); CHLORIDE 102 MMOL/L (99-107); CREATININE 0.99 MG/DL (0.60-1.10); GLUCOSE 116 MG/DL (70-104); POTASSIUM 3.7 MMOL/L (3.5-5.1); SODIUM 137 MMOL/L (135-145); TOTAL CARBON DIOXIDE 26.8 MMOL/L (24-32); TOTAL PROTEIN 7.4 G/DL (6.4-8.2); eGFR 82 ML/MIN
== END 2022-05-06 14:30 | disposition left against medical advice (07) ==
LOC: ER 11:35
DX: R07.89 Other chest pain (principal); Z53.21 Procedure and treatment not carried out due to patient leaving prior to being seen by health care provider
CPT/HCPCS: 36415; 71045; 80053; 83880; 84484; 85025; 93005

== ENCOUNTER 2022-07-22 21:33 | Emergency (ER) | payer BC ==
[~2022-07-22] VITALS: Ht 180.3 cm; Wt 84.1 kg
[2022-07-22 21:51] LABS: BASOPHILS # (AUTO) 0.1 X10'3 (0-0.2); BASOPHILS % (AUTO) 0.8 % (0-1); EOSINOPHILS # (AUTO) 0.4 X10'3 (0-0.9); HEMATOCRIT 41.6 % (42.0-52.0); HEMOGLOBIN 14.5 g/dl (14.0-17.9); LYMPHOCYTES # (AUTO) 3.7 X10'3 (1.1-4.8); LYMPHOCYTES % (AUTO) 48.3 % (21-51); MEAN CORPUSCULAR HEMOGLOBIN 31.1 PG (27.0-31.0); MEAN CORPUSCULAR HGB CONC 34.8 g/dL (33.0-36.5); MEAN CORPUSCULAR VOLUME 89.5 FL (78-98); MEAN PLATELET VOLUME 7.1 FL (7.4-10.4); MONOCYTES # (AUTO) 0.8 X10'3 (0-0.9); MONOCYTES % (AUTO) 10.6 % (2-12); NEUTROPHILS # (AUTO) 2.7 X10'3 (1.8-7.7); NEUTROPHILS % (AUTO) 35.3 % (42-75); PLATELET COUNT 282 X10'3 (140-440); RED BLOOD COUNT 4.65 X10'6 (4.70-6.10); RED CELL DISTRIBUTION WIDTH 12.8 % (11.5-14.5); WHITE BLOOD COUNT 7.7 X10'3 (4.5-11.0)
[2022-07-22 22:09] LABS: ALANINE AMINOTRANSFERASE 70 U/L (12-78); ALBUMIN 4.1 G/DL (3.4-5.0); ALBUMIN/GLOBULIN RATIO 1.2 (1.1-1.5); ALKALINE PHOSPHATASE 87 IU/L (46-116); ANION GAP 10 (8-16); ASPARTATE AMINO TRANSFERASE 32 U/L (10-37); BILIRUBIN,TOTAL 0.3 MG/DL (0.1-1.0); BLOOD UREA NITROGEN 23 MG/DL (7-18); BUN/CREATININE RATIO 16.9 (5.4-32.0); CALCIUM 9.1 MG/DL (8.5-10.1); CHLORIDE 103 MMOL/L (99-107); CREATININE 1.36 MG/DL (0.60-1.10); GLUCOSE 125 MG/DL (70-104); POTASSIUM 3.2 MMOL/L (3.5-5.1); SODIUM 139 MMOL/L (135-145); TOTAL CARBON DIOXIDE 26.4 MMOL/L (24-32); TOTAL PROTEIN 7.4 G/DL (6.4-8.2); eGFR 56 ML/MIN
[2022-07-22] MEDS ORDERED: normal saline 1000ML IV soln IVB ONE (22:40)
[2022-07-22] MEDS ORDERED: potassium Cl 20 mEq SR tablet PO ONE (22:40)
[2022-07-22] MEDS ORDERED: magnesium Cl slow-release 64mg tablet PO STA (22:40)
[2022-07-22 23:27] VITALS: BP 131/81
--- NOTE | 2022-07-23 00:12 | NUR ---
Patient declined IV fluids. Pt agreed to PO intake of water
== END 2022-07-23 01:11 | disposition home or self-care (01) ==
LOC: ER 21:35
DX: E86.0 Dehydration (principal); E87.6 Hypokalemia; R07.89 Other chest pain; R00.2 Palpitations; R55 Syncope and collapse; I10 Essential (primary) hypertension; F41.9 Anxiety disorder, unspecified; Z72.0 Tobacco use; Z72.89 Other problems related to lifestyle; Z79.899 Other long term (current) drug therapy
CPT/HCPCS: 36415; 80053; 83735; 83880; 84484; 85025; 93005; 99284

== ENCOUNTER 2022-07-31 10:39 | Emergency (ER) | payer BC ==
[~2022-07-31] VITALS: Ht 180.3 cm; Wt 73.0 kg
[2022-07-31 11:02] VITALS: BP 146/101
[2022-07-31 11:04] LABS: BASOPHILS # (AUTO) 0.1 X10'3 (0-0.2); EOSINOPHILS # (AUTO) 0.2 X10'3 (0-0.9); EOSINOPHILS % (AUTO) 4.4 % (0-6); HEMATOCRIT 41.1 % (42.0-52.0); HEMOGLOBIN 14.3 g/dl (14.0-17.9); LYMPHOCYTES # (AUTO) 2.3 X10'3 (1.1-4.8); LYMPHOCYTES % (AUTO) 41.7 % (21-51); MEAN CORPUSCULAR HGB CONC 34.8 g/dL (33.0-36.5); MEAN CORPUSCULAR VOLUME 89.2 FL (78-98); MEAN PLATELET VOLUME 7.2 FL (7.4-10.4); MONOCYTES # (AUTO) 0.6 X10'3 (0-0.9); NEUTROPHILS # (AUTO) 2.3 X10'3 (1.8-7.7); NEUTROPHILS % (AUTO) 41.9 % (42-75); PLATELET COUNT 272 X10'3 (140-440); RED BLOOD COUNT 4.61 X10'6 (4.70-6.10); RED CELL DISTRIBUTION WIDTH 12.7 % (11.5-14.5); WHITE BLOOD COUNT 5.6 X10'3 (4.5-11.0)
[2022-07-31 11:19] LABS: ALANINE AMINOTRANSFERASE 61 U/L (12-78); ALBUMIN 4.1 G/DL (3.4-5.0); ALBUMIN/GLOBULIN RATIO 1.2 (1.1-1.5); ALKALINE PHOSPHATASE 74 IU/L (46-116); ANION GAP 12 (8-16); ASPARTATE AMINO TRANSFERASE 34 U/L (10-37); BILIRUBIN,TOTAL 0.6 MG/DL (0.1-1.0); BLOOD UREA NITROGEN 18 MG/DL (7-18); BUN/CREATININE RATIO 14.5 (5.4-32.0); CALCIUM 9.1 MG/DL (8.5-10.1); CHLORIDE 98 MMOL/L (99-107); CREATININE 1.24 MG/DL (0.60-1.10); GLUCOSE 112 MG/DL (70-104); POTASSIUM 3.5 MMOL/L (3.5-5.1); SODIUM 136 MMOL/L (135-145); TOTAL CARBON DIOXIDE 26.4 MMOL/L (24-32); TOTAL PROTEIN 7.5 G/DL (6.4-8.2); eGFR 63 ML/MIN
[2022-07-31 11:28] LABS: MAGNESIUM 1.9 MG/DL (1.5-2.4)
== END 2022-07-31 13:02 | disposition left against medical advice (07) ==
LOC: ER 10:40
DX: I10 Essential (primary) hypertension (principal); R07.89 Other chest pain; R55 Syncope and collapse; H53.489 Generalized contraction of visual field, unspecified eye; F41.9 Anxiety disorder, unspecified; Z72.89 Other problems related to lifestyle; Z79.899 Other long term (current) drug therapy
CPT/HCPCS: 36415; 80053; 83735; 83880; 84484; 85025; 93005; 99284; 99285

== ENCOUNTER 2023-01-04 16:09 | Emergency (ER) | payer BC ==
[~2023-01-04] VITALS: Ht 180.3 cm; Wt 86.4 kg
[2023-01-04 17:07] LABS: BASOPHILS # (AUTO) 0.1 X10'3 (0-0.2); BASOPHILS % (AUTO) 0.9 % (0-1); EOSINOPHILS # (AUTO) 0.3 X10'3 (0-0.9); EOSINOPHILS % (AUTO) 4.8 % (0-6); HEMATOCRIT 38.7 % (42.0-52.0); HEMOGLOBIN 13.9 g/dl (14.0-17.9); LYMPHOCYTES % (AUTO) 28.6 % (21-51); MEAN CORPUSCULAR HEMOGLOBIN 32.2 PG (27.0-31.0); MEAN CORPUSCULAR HGB CONC 35.9 g/dL (33.0-36.5); MEAN CORPUSCULAR VOLUME 89.7 FL (78-98); MEAN PLATELET VOLUME 7.3 FL (7.4-10.4); MONOCYTES # (AUTO) 0.8 X10'3 (0-0.9); MONOCYTES % (AUTO) 11.1 % (2-12); NEUTROPHILS # (AUTO) 3.8 X10'3 (1.8-7.7); NEUTROPHILS % (AUTO) 54.6 % (42-75); PLATELET COUNT 277 X10'3 (140-440); RED BLOOD COUNT 4.32 X10'6 (4.70-6.10); RED CELL DISTRIBUTION WIDTH 13.1 % (11.5-14.5); WHITE BLOOD COUNT 6.9 X10'3 (4.5-11.0)
[2023-01-04 17:55] LABS: ALANINE AMINOTRANSFERASE 89 U/L (12-78); ALBUMIN 4.2 G/DL (3.4-5.0); ALBUMIN/GLOBULIN RATIO 1.1 (1.1-1.5); ALKALINE PHOSPHATASE 76 IU/L (46-116); ANION GAP 12 (8-16); ASPARTATE AMINO TRANSFERASE 42 U/L (10-37); BILIRUBIN,TOTAL 0.8 MG/DL (0.1-1.0); BLOOD UREA NITROGEN 20 MG/DL (7-18); BUN/CREATININE RATIO 14.8 (10.0-20.0); CALCIUM 9.5 MG/DL (8.5-10.1); CHLORIDE 98 MMOL/L (99-107); CREATININE 1.35 MG/DL (0.60-1.10); GLUCOSE 110 MG/DL (70-104); POTASSIUM 3.1 MMOL/L (3.5-5.1); SODIUM 138 MMOL/L (135-145); TOTAL PROTEIN 8.2 G/DL (6.4-8.2); eGFR 57 ML/MIN
[2023-01-04] MEDS ORDERED: ketorolac trometh inj. 60 MG/2 ML VIAL IM ONE (21:35)
[2023-01-04] MEDS ORDERED: potassium Cl 20 mEq SR tablet PO STA (21:39)
[2023-01-04] MEDS ORDERED: magnesium oxide 400mg tablet PO ONE (21:40)
[2023-01-04 22:13] LABS: MAGNESIUM 1.9 MG/DL (1.5-2.4)
[2023-01-04] MEDS ORDERED: dexamethasone 4mg tablet PO ONE (22:55)
[2023-01-04] MEDS ORDERED: cyclobenzaprine 10mg tablet PO ONE (23:10)
[2023-01-04] MEDS ORDERED: HYDROcodone/acetaminophen 5mg/325mg tablet PO ONE (23:10)
[2023-01-04] MEDS ORDERED: CYCL-1 PO (23:10)
[2023-01-04 23:12] VITALS: BP 145/101
== END 2023-01-04 23:15 | disposition home or self-care (01) ==
LOC: ER 16:10
DX: E87.6 Hypokalemia (principal); R07.89 Other chest pain; I10 Essential (primary) hypertension; F17.200 Nicotine dependence, unspecified, uncomplicated
CPT/HCPCS: 36415; 71045; 71250; 80053; 83735; 83880; 84484; 85025; 93005; 96372; 99285; J1885

== ENCOUNTER 2023-08-25 14:32 | Emergency (ER) | payer SELFPAY ==
[~2023-08-25] VITALS: Ht 180.3 cm; Wt 86.8 kg
[~2023-08-25 14:32] MED LIST changes: +CYCL-1 PO; -OLME20TA23 PO; +OLME20TA69 PO
[2023-08-25 14:40] VITALS: TEMP 97.3
[2023-08-25 15:07] LABS: BASOPHILS % (AUTO) 0.7 % (0-1); EOSINOPHILS # (AUTO) 0.3 X10'3 (0-0.9); EOSINOPHILS % (AUTO) 4.7 % (0-6); HEMATOCRIT 41.3 % (42.0-52.0); HEMOGLOBIN 14.7 g/dl (14.0-17.9); LYMPHOCYTES # (AUTO) 2.2 X10'3 (1.1-4.8); LYMPHOCYTES % (AUTO) 41.5 % (21-51); MEAN CORPUSCULAR HEMOGLOBIN 31.8 PG (27.0-31.0); MEAN CORPUSCULAR HGB CONC 35.5 g/dL (33.0-36.5); MEAN CORPUSCULAR VOLUME 89.7 FL (78-98); MEAN PLATELET VOLUME 7.5 FL (7.4-10.4); MONOCYTES # (AUTO) 0.6 X10'3 (0-0.9); MONOCYTES % (AUTO) 11.4 % (2-12); NEUTROPHILS # (AUTO) 2.2 X10'3 (1.8-7.7); NEUTROPHILS % (AUTO) 41.7 % (42-75); PLATELET COUNT 266 X10'3 (140-440); RED CELL DISTRIBUTION WIDTH 12.9 % (11.5-14.5); WHITE BLOOD COUNT 5.4 X10'3 (4.5-11.0)
[2023-08-25 15:21] LABS: ALANINE AMINOTRANSFERASE 111 U/L (12-78); ALBUMIN 4.4 G/DL (3.4-5.0); ALBUMIN/GLOBULIN RATIO 1.4 (1.1-1.5); ALKALINE PHOSPHATASE 76 IU/L (46-116); ANION GAP 13 (8-16); ASPARTATE AMINO TRANSFERASE 48 U/L (10-37); BILIRUBIN,TOTAL 0.6 MG/DL (0.1-1.0); BLOOD UREA NITROGEN 14 MG/DL (7-18); BUN/CREATININE RATIO 14.1 (10.0-20.0); CALCIUM 8.6 MG/DL (8.5-10.1); CHLORIDE 96 MMOL/L (99-107); CREATININE 0.99 MG/DL (0.60-1.10); GLUCOSE 108 MG/DL (70-104); PRO BRAIN NATRIURETIC PEPTIDE 46 PG/ML (0-125); SODIUM 138 MMOL/L (135-145); TOTAL CARBON DIOXIDE 29.3 MMOL/L (24-32); TOTAL PROTEIN 7.6 G/DL (6.4-8.2); eCRCL 98 ML/MIN; eGFR 81 ML/MIN
[2023-08-25 15:29] LABS: POTASSIUM 2.8 MMOL/L (3.5-5.1)
[2023-08-25 15:37] VITALS: BP 144/97; PULSE 73; O2SAT 96
[2023-08-25] MEDS: potassium Cl 20 mEq SR tablet PO STA (15:40)
[2023-08-25] MEDS ORDERED: POTA-207 PO (17:09)
[2023-08-25 17:30] VITALS: RESP 16
== END 2023-08-25 17:29 | disposition home or self-care (01) ==
LOC: ER 14:33
DX: R00.2 Palpitations (principal); E87.6 Hypokalemia; R07.89 Other chest pain; I10 Essential (primary) hypertension; F41.9 Anxiety disorder, unspecified; F17.200 Nicotine dependence, unspecified, uncomplicated; Z72.89 Other problems related to lifestyle; Z79.899 Other long term (current) drug therapy; Z88.8 Allergy status to other drugs, medicaments and biological substances
CPT/HCPCS: 36415; 71045; 80053; 83880; 84484; 85025; 93005; 99285

== ENCOUNTER 2023-10-27 12:27 | Emergency (ER) | payer BC ==
[~2023-10-27] VITALS: Ht 180.3 cm; Wt 84.1 kg
[2023-10-27 12:39] VITALS: TEMP 98.4
[2023-10-27 12:57] LABS: EOSINOPHILS # (AUTO) 0.2 X10'3 (0-0.9); LYMPHOCYTES # (AUTO) 3.4 X10'3 (1.1-4.8); MEAN CORPUSCULAR HEMOGLOBIN 32.2 PG (27.0-31.0); RED BLOOD COUNT 4.54 X10'6 (4.70-6.10)
[2023-10-27 12:59] LABS: BASOPHILS # (AUTO) 0.1 X10'3 (0-0.2); EOSINOPHILS % (AUTO) 4.1 % (0-6); HEMATOCRIT 41.2 % (42.0-52.0); HEMOGLOBIN 14.7 g/dl (14.0-17.9); LYMPHOCYTES % (AUTO) 59.4 % (21-51); MEAN CORPUSCULAR HGB CONC 35.5 g/dL (33.0-36.5); MEAN CORPUSCULAR VOLUME 90.7 FL (78-98); MEAN PLATELET VOLUME 7.6 FL (7.4-10.4); MONOCYTES # (AUTO) 0.6 X10'3 (0-0.9); MONOCYTES % (AUTO) 11.4 % (2-12); NEUTROPHILS # (AUTO) 1.4 X10'3 (1.8-7.7); NEUTROPHILS % (AUTO) 24.1 % (42-75); PLATELET COUNT 304 X10'3 (140-440); RED CELL DISTRIBUTION WIDTH 12.8 % (11.5-14.5); WHITE BLOOD COUNT 5.6 X10'3 (4.5-11.0)
[2023-10-27 13:12] LABS: ALANINE AMINOTRANSFERASE 87 U/L (12-78); ALBUMIN/GLOBULIN RATIO 1.2 (1.1-1.5); ALKALINE PHOSPHATASE 77 IU/L (46-116); ANION GAP 15 (8-16); ASPARTATE AMINO TRANSFERASE 42 U/L (10-37); BILIRUBIN,TOTAL 0.4 MG/DL (0.1-1.0); BLOOD UREA NITROGEN 17 MG/DL (7-18); BUN/CREATININE RATIO 14.7 (10.0-20.0); CALCIUM 9.2 MG/DL (8.5-10.1); CHLORIDE 102 MMOL/L (99-107); CREATININE 1.16 MG/DL (0.60-1.10); GLUCOSE 131 MG/DL (70-104); PRO BRAIN NATRIURETIC PEPTIDE 50 PG/ML (0-125); SODIUM 140 MMOL/L (135-145); TOTAL CARBON DIOXIDE 22.8 MMOL/L (24-32); TOTAL PROTEIN 7.4 G/DL (6.4-8.2); eCRCL 84 ML/MIN; eGFR 67 ML/MIN
[2023-10-27 13:15] LABS: POTASSIUM 2.9 MMOL/L (3.5-5.1)
[2023-10-27] MEDS: potassium Cl 20 mEq SR tablet PO STA (14:26)
[2023-10-27] MEDS: normal saline 1000ml 1,000 ML IV ONE (14:27)
[2023-10-27] MEDS: potassium CL 10mEq/100ml bag 100 ML IV SCH (14:27)
[2023-10-27] MEDS: normal saline 500ml IV soln 500 ML IV ONE (15:30)
[2023-10-27 16:07] VITALS: BP 127/83; PULSE 61; RESP 13; O2SAT 99
== END 2023-10-27 16:10 | disposition home or self-care (01) ==
LOC: ER 12:27
DX: E87.6 Hypokalemia (principal); E86.0 Dehydration; Z79.899 Other long term (current) drug therapy
CPT/HCPCS: 36415; 71045; 80053; 83880; 84484; 85025; 93005; 96365; 99285; J3480; J7030; J7040

== ENCOUNTER 2023-11-04 10:57 | Observation (INO) | payer BC ==
[~2023-11-04] VITALS: Ht 180.3 cm; Wt 85.5 kg
[2023-11-04 11:19] LABS: BASOPHILS % (AUTO) 0.9 % (0-1); EOSINOPHILS # (AUTO) 0.2 X10'3 (0-0.9); EOSINOPHILS % (AUTO) 3.5 % (0-6); HEMATOCRIT 36.3 % (42.0-52.0); HEMOGLOBIN 12.7 g/dl (14.0-17.9); LYMPHOCYTES # (AUTO) 1.7 X10'3 (1.1-4.8); LYMPHOCYTES % (AUTO) 34.2 % (21-51); MEAN CORPUSCULAR HGB CONC 35.1 g/dL (33.0-36.5); MEAN CORPUSCULAR VOLUME 91.3 FL (78-98); MEAN PLATELET VOLUME 7.1 FL (7.4-10.4); MONOCYTES # (AUTO) 0.6 X10'3 (0-0.9); MONOCYTES % (AUTO) 11.1 % (2-12); NEUTROPHILS # (AUTO) 2.5 X10'3 (1.8-7.7); NEUTROPHILS % (AUTO) 50.3 % (42-75); PLATELET COUNT 222 X10'3 (140-440); RED BLOOD COUNT 3.97 X10'6 (4.70-6.10); RED CELL DISTRIBUTION WIDTH 13.4 % (11.5-14.5)
[2023-11-04 11:44] LABS: ALANINE AMINOTRANSFERASE 81 U/L (12-78); ALBUMIN 3.9 G/DL (3.4-5.0); ALBUMIN/GLOBULIN RATIO 1.3 (1.1-1.5); ALKALINE PHOSPHATASE 62 IU/L (46-116); ANION GAP 12 (8-16); ASPARTATE AMINO TRANSFERASE 48 U/L (10-37); BILIRUBIN,TOTAL 0.6 MG/DL (0.1-1.0); BLOOD UREA NITROGEN 16 MG/DL (7-18); BUN/CREATININE RATIO 15.8 (10.0-20.0); CALCIUM 8.2 MG/DL (8.5-10.1); CHLORIDE 96 MMOL/L (99-107); CREATININE 1.01 MG/DL (0.60-1.10); GLUCOSE 102 MG/DL (70-104); PRO BRAIN NATRIURETIC PEPTIDE 141 PG/ML (0-125); SODIUM 134 MMOL/L (135-145); eCRCL 96 ML/MIN; eGFR 79 ML/MIN
[2023-11-04 11:56] LABS: POTASSIUM 2.7 MMOL/L (3.5-5.1)
[2023-11-04 15:32] LABS: ETHANOL < 10 MG/DL (<10)
[2023-11-04 15:53] LABS: URINE AMPHETAMINE SCREEN NEGATIVE (Neg); URINE BARBITUATE SCREEN NEGATIVE (Neg); URINE BENZODIAZEPINES SCREEN NEGATIVE (Neg); URINE CANNABINOID SCREEN NEGATIVE (Neg); URINE COCAINE SCREEN NEGATIVE (Neg); URINE METHADONE SCREEN NEGATIVE (Neg); URINE OPIATE SCREEN NEGATIVE (Neg); URINE PHENCYCLIDINE SCREEN NEGATIVE (Neg)
[2023-11-04] MEDS ORDERED: ondansetron/PF 4mg/2ml inj IV PRN (16:05)
[2023-11-04] MEDS ORDERED: magnesium 4gm in 100ml NS 100 ML IV PRN (16:05)
[2023-11-04] MEDS ORDERED: magnesium 2GM in 50ml NS 50 ML IV PRN (16:05)
[2023-11-04] MEDS ORDERED: potassium Cl 20 mEq SR tablet PO PRN (16:05)
[2023-11-04] MEDS ORDERED: acetaminophen 325mg tablet PO PRN (16:05)
[2023-11-04] MEDS: PERFLUTREN PROTEIN-A MICROSPHR (Optison) 0.22 MG/ML 3ML VIAL IV ONE (16:05)
[2023-11-04] MEDS: potassium bicarbonate/cit acid 25mEq tablet.effervescent PO SCH (17:02)
[2023-11-04] MEDS: chlordiazePOXIDE 25mg capsule PO PRN (19:33)
[2023-11-04] MEDS: normal saline 1000ml 1,000 ML IV SCH (19:34)
[2023-11-04] MEDS: potassium Cl 40MEQ/1/2NS 520ml 520 ML IV PRN (19:35)
[2023-11-04 19:41] LABS: MAGNESIUM 1.3 MG/DL (1.5-2.4)
[2023-11-04] MEDS: K and/or MAG REPLACEMENT MC SCH (19:58)
[2023-11-04] MEDS ORDERED: CHLO50TA PO (23:33)
[2023-11-04] MEDS ORDERED: GUAN1TAB PO (23:33)
[2023-11-04] MEDS ORDERED: VALS320T17 PO (23:34)
[2023-11-04 23:35] VITALS: BP 162/99; PULSE 80; RESP 18; TEMP 97.4; O2SAT 97
[2023-11-04] MEDS: magnesium Cl slow-release 64mg tablet PO PRN (23:37)
[2023-11-05 02:00] VITALS: BP 161/96; PULSE 77; RESP 16; TEMP 97.7; O2SAT 98
[2023-11-05 03:43] VITALS: RESP 16; O2SAT 98
[2023-11-05 06:13] LABS: BASOPHILS % (AUTO) 0.7 % (0-1); EOSINOPHILS # (AUTO) 0.3 X10'3 (0-0.9); EOSINOPHILS % (AUTO) 5.8 % (0-6); HEMOGLOBIN 12.9 g/dl (14.0-17.9); LYMPHOCYTES # (AUTO) 1.9 X10'3 (1.1-4.8); LYMPHOCYTES % (AUTO) 43.4 % (21-51); MEAN CORPUSCULAR HGB CONC 34.9 g/dL (33.0-36.5); MEAN CORPUSCULAR VOLUME 91.6 FL (78-98); MEAN PLATELET VOLUME 7.3 FL (7.4-10.4); MONOCYTES # (AUTO) 0.5 X10'3 (0-0.9); MONOCYTES % (AUTO) 10.5 % (2-12); NEUTROPHILS # (AUTO) 1.8 X10'3 (1.8-7.7); NEUTROPHILS % (AUTO) 39.6 % (42-75); PLATELET COUNT 223 X10'3 (140-440); RED BLOOD COUNT 4.04 X10'6 (4.70-6.10); RED CELL DISTRIBUTION WIDTH 13.2 % (11.5-14.5); WHITE BLOOD COUNT 4.5 X10'3 (4.5-11.0)
[2023-11-05 06:30] LABS: ALBUMIN 3.4 G/DL (3.4-5.0); ANION GAP 7 (8-16); BLOOD UREA NITROGEN 10 MG/DL (7-18); BUN/CREATININE RATIO 10.3 (10.0-20.0); CALCIUM 7.9 MG/DL (8.5-10.1); CHLORIDE 104 MMOL/L (99-107); CREATININE 0.97 MG/DL (0.60-1.10); GLUCOSE 107 MG/DL (70-104); MAGNESIUM 1.9 MG/DL (1.5-2.4); POTASSIUM 3.1 MMOL/L (3.5-5.1); SODIUM 140 MMOL/L (135-145); TOTAL CARBON DIOXIDE 29.2 MMOL/L (24-32); eCRCL 100 ML/MIN; eGFR 83 ML/MIN
[2023-11-05] MEDS: potassium Cl 20 mEq SR tablet PO PRN (07:11)
[2023-11-05 07:20] VITALS: BP 146/92; PULSE 75; RESP 14; TEMP 97.9; O2SAT 99
[2023-11-05 08:00] VITALS: RESP 14; O2SAT 99
== END 2023-11-05 12:10 | disposition home or self-care (01) ==
LOC: ER 10:57 → ED HOLD 16:05 → UNDOADMOB 16:05 → ED HOLD 16:15 → PCU 3S 23:21
PROVIDERS: ADMIT Internal Medicine; ATTEND Internal Medicine
DX: R00.2 Palpitations (principal); I10 Essential (primary) hypertension; E87.6 Hypokalemia; F10.20 Alcohol dependence, uncomplicated; F41.9 Anxiety disorder, unspecified; I45.4 Nonspecific intraventricular block; Y90.0 Blood alcohol level of less than 20 mg/100 ml; Z79.899 Other long term (current) drug therapy
CPT/HCPCS: 36415; 71045; 80048; 80053; 80305; 80320; 83735; 83880; 84484; 85025; 87081; 93005; 93306; 96360; 96361; 99291; G0378; J3480; J7030; A4615

== ENCOUNTER 2023-11-12 20:10 | Inpatient (IN) | payer BC ==
[~2023-11-12] VITALS: Ht 180.3 cm; Wt 83.2 kg
[~2023-11-12 20:10] MED LIST changes: +GUAN1TAB PO; +VALS320T17 PO
[2023-11-12 20:31] LABS: BASOPHILS % (AUTO) 0.7 % (0-1); EOSINOPHILS # (AUTO) 0.2 X10'3 (0-0.9); EOSINOPHILS % (AUTO) 3.6 % (0-6); HEMATOCRIT 38.8 % (42.0-52.0); HEMOGLOBIN 13.6 g/dl (14.0-17.9); LYMPHOCYTES # (AUTO) 2.4 X10'3 (1.1-4.8); LYMPHOCYTES % (AUTO) 39.2 % (21-51); MEAN CORPUSCULAR HEMOGLOBIN 32.5 PG (27.0-31.0); MEAN CORPUSCULAR VOLUME 92.8 FL (78-98); MEAN PLATELET VOLUME 7.1 FL (7.4-10.4); MONOCYTES # (AUTO) 0.6 X10'3 (0-0.9); NEUTROPHILS % (AUTO) 47.5 % (42-75); PLATELET COUNT 256 X10'3 (140-440); RED BLOOD COUNT 4.18 X10'6 (4.70-6.10); RED CELL DISTRIBUTION WIDTH 13.2 % (11.5-14.5); WHITE BLOOD COUNT 6.2 X10'3 (4.5-11.0)
[2023-11-12 20:44] LABS: ALANINE AMINOTRANSFERASE 78 U/L (12-78); ALBUMIN 3.9 G/DL (3.4-5.0); ALKALINE PHOSPHATASE 64 IU/L (46-116); ANION GAP 8 (8-16); ASPARTATE AMINO TRANSFERASE 32 U/L (10-37); BILIRUBIN,TOTAL 0.6 MG/DL (0.1-1.0); BLOOD UREA NITROGEN 13 MG/DL (7-18); BUN/CREATININE RATIO 11.6 (10.0-20.0); CALCIUM 8.8 MG/DL (8.5-10.1); CHLORIDE 103 MMOL/L (99-107); CREATININE 1.12 MG/DL (0.60-1.10); GLUCOSE 129 MG/DL (70-104); POTASSIUM 3.7 MMOL/L (3.5-5.1); SODIUM 138 MMOL/L (135-145); TOTAL CARBON DIOXIDE 27.2 MMOL/L (24-32); TOTAL PROTEIN 7.9 G/DL (6.4-8.2); eGFR 70 ML/MIN
[2023-11-12 20:51] LABS: PRO BRAIN NATRIURETIC PEPTIDE 375 PG/ML (0-125)
[2023-11-13] VITALS (10 sets, daily range): BP systolic 150–184; BP diastolic 86–101; PULSE 51–115; RESP 13–20; TEMP 97.4–97.6; O2SAT 98–100
[2023-11-13] MEDS: aspirin 325mg tablet PO ONE (02:49)
[2023-11-13] MEDS ORDERED: NITR1PAT25 TOP (03:31)
[2023-11-13] MEDS: nitroGLYCERIN 1gm ointment UD TP ONE (03:38)
[2023-11-13] MEDS ORDERED: magnesium 2GM in 50ml NS 50 ML IV PRN (03:45)
[2023-11-13] MEDS ORDERED: acetaminophen 325mg tablet PO PRN (03:45)
[2023-11-13] MEDS ORDERED: magnesium Cl slow-release 64mg tablet PO PRN (03:45)
[2023-11-13] MEDS ORDERED: magnesium 4gm in 100ml NS 100 ML IV PRN (03:45)
[2023-11-13] MEDS ORDERED: morphine 2 MG/ML inj. syringe IV PRN ×2 (03:45)
[2023-11-13] MEDS ORDERED: ondansetron/PF 4mg/2ml inj IV PRN (03:45)
[2023-11-13] MEDS ORDERED: magnesium hydroxide 30ml (MOM) UD suspension PO PRN (03:45)
[2023-11-13] MEDS ORDERED: HYDROcodone/acetaminophen 10/325mg tab PO PRN (03:45)
[2023-11-13] MEDS ORDERED: potassium Cl 40MEQ/1/2NS 520ml 520 ML IV PRN (03:45)
[2023-11-13] MEDS ORDERED: mag hydrox/Alum hydrox/simeth 30ml oral suspension PO PRN (03:45)
[2023-11-13] MEDS ORDERED: HYDROcodone/acetaminophen 5mg/325mg tablet PO PRN (03:45)
[2023-11-13] MEDS ORDERED: potassium Cl 20 mEq SR tablet PO PRN (03:45)
[2023-11-13 04:09] LABS: MAGNESIUM 2.4 MG/DL (1.5-2.4)
[2023-11-13] MEDS: K and/or MAG REPLACEMENT MC SCH (08:00)
[2023-11-13] MEDS: losartan 50mg tablet PO SCH (08:00)
[2023-11-13] MEDS ORDERED: aminophylline 250mg/10ml inj. IV PRN (08:50)
[2023-11-13] MEDS ORDERED: metoprolol tartrate 1mg/ml inj IV PRN (08:50)
[2023-11-13] MEDS ORDERED: nitroGLYCERIN 0.4mg SUBLingual tab SL PRN (08:50)
[2023-11-13] MEDS: multivitamins, therapeutics tablet PO SCH (10:35)
[2023-11-13] MEDS ORDERED: POTA99CA PO (12:10)
[2023-11-13] MEDS ORDERED: MAGNESIUM TAURATE PO (12:10)
[2023-11-13] MEDS ORDERED: GRAP50TA2 PO (12:14)
[2023-11-13] MEDS ORDERED: UBID200C18 PO ×2 (12:14)
[2023-11-13] MEDS ORDERED: Beet Root PO (12:14)
[2023-11-13] MEDS ORDERED: OMEG1TAB5 PO (12:14)
[2023-11-13] MEDS ORDERED: DOCO1CAP11 PO (12:18)
[2023-11-13] MEDS: regadenoson 0.4mg/5ml syringe IV PRN (16:08)
[2023-11-13] MEDS: chlorthalidone 25mg tablet PO SCH (19:47)
[2023-11-13] MEDS: spironolactone 25 MG tablet PO SCH (20:04)
[2023-11-14 01:00] VITALS: BP 160/102; PULSE 59; RESP 16
[2023-11-14 02:15] VITALS: BP 160/96; PULSE 51; RESP 17
[2023-11-14 07:08] LABS: BASOPHILS % (AUTO) 0.7 % (0-1); EOSINOPHILS # (AUTO) 0.2 X10'3 (0-0.9); EOSINOPHILS % (AUTO) 3.6 % (0-6); HEMATOCRIT 39.8 % (42.0-52.0); HEMOGLOBIN 14.1 g/dl (14.0-17.9); LYMPHOCYTES % (AUTO) 35.9 % (21-51); MEAN CORPUSCULAR HEMOGLOBIN 32.3 PG (27.0-31.0); MEAN CORPUSCULAR HGB CONC 35.3 g/dL (33.0-36.5); MEAN CORPUSCULAR VOLUME 91.6 FL (78-98); MEAN PLATELET VOLUME 7.3 FL (7.4-10.4); MONOCYTES # (AUTO) 0.5 X10'3 (0-0.9); MONOCYTES % (AUTO) 9.1 % (2-12); NEUTROPHILS # (AUTO) 2.8 X10'3 (1.8-7.7); NEUTROPHILS % (AUTO) 50.7 % (42-75); PLATELET COUNT 241 X10'3 (140-440); RED BLOOD COUNT 4.35 X10'6 (4.70-6.10); RED CELL DISTRIBUTION WIDTH 13.4 % (11.5-14.5); WHITE BLOOD COUNT 5.5 X10'3 (4.5-11.0)
[2023-11-14 07:26] LABS: ALBUMIN 3.7 G/DL (3.4-5.0); ANION GAP 10 (8-16); BLOOD UREA NITROGEN 11 MG/DL (7-18); BUN/CREATININE RATIO 11.3 (10.0-20.0); CALCIUM 8.8 MG/DL (8.5-10.1); CHLORIDE 102 MMOL/L (99-107); CHOLESTEROL 190 MG/DL (0-200); CREATININE 0.97 MG/DL (0.60-1.10); GLUCOSE 93 MG/DL (70-104); HDL CHOLESTEROL 48 MG/DL (35-60); LDL CHOLESTEROL 123 MG/DL (50-100); POTASSIUM 3.4 MMOL/L (3.5-5.1); SODIUM 137 MMOL/L (135-145); TOTAL CARBON DIOXIDE 24.8 MMOL/L (24-32); TRIGLYCERIDES 106 MG/DL (20-135); eCRCL 100 ML/MIN; eGFR 83 ML/MIN
[2023-11-14] MEDS: potassium Cl 20 mEq SR tablet PO PRN (07:32)
[2023-11-14 10:00] VITALS: BP 174/102; PULSE 63; RESP 21; TEMP 97.5; O2SAT 97
[2023-11-14] MEDS ORDERED: VALS1TAB81 PO (10:54)
[2023-11-14] MEDS ORDERED: AMLO10TA PO (11:00)
[2023-11-14 11:45] VITALS: BP 163/101; PULSE 66
[2023-11-14] MEDS: cloNIDine 0.1 mg tablet PO PRN (11:45)
[2023-11-14] MEDS ORDERED: HYDR25TA5 PO (13:23)
== END 2023-11-14 14:39 | disposition home or self-care (01) | DRG 313 ==
LOC: ER 20:11 → ED HOLD 11-13 02:59 → ORTHO 4S 11-13 17:18 → OBSVTOIN 11-13 18:45
PROVIDERS: ADMIT Student in an Organized Health Care Education/Training Program; ATTEND Internal Medicine
PROC: 4A02XM4 Measurement of Cardiac Total Activity, External Approach (ICD-10-PCS; principal; 2023-11-13)
PROC: 3E033HZ Introduction of Radioactive Substance into Peripheral Vein, Percutaneous Approach (ICD-10-PCS; 2023-11-13)
DX: R07.89 Other chest pain (principal); E78.5 Hyperlipidemia, unspecified; F41.9 Anxiety disorder, unspecified; I10 Essential (primary) hypertension; K21.9 Gastro-esophageal reflux disease without esophagitis; F17.210 Nicotine dependence, cigarettes, uncomplicated
CPT/HCPCS: 36415; 71045; 78452; 80048; 80053; 80061; 83735; 83880; 84100; 84484; 85025; 87081; 93005; 93017; 99285; A9500; G0378; J2785

== ENCOUNTER 2023-12-16 12:25 | Emergency (ER) | payer BC ==
[~2023-12-16] VITALS: Ht 180.3 cm; Wt 82.5 kg
[~2023-12-16 12:25] MED LIST changes: -ALPR0.255 PO; -CLON0.1T PO; -CYCL-1 PO; +DOCO1CAP11 PO; +HYDR25TA5 PO; -METO-539 PO; +NITR1PAT25 TOP; -OLME20TA69 PO; +UBID200C18 PO; +VALS1TAB81 PO; -VALS320T17 PO; -VITAMIN D3
[2023-12-16 12:57] LABS: BASOPHILS % (AUTO) 0.5 % (0-1); EOSINOPHILS # (AUTO) 0.2 X10'3 (0-0.9); EOSINOPHILS % (AUTO) 3.2 % (0-6); HEMATOCRIT 38.7 % (42.0-52.0); HEMOGLOBIN 13.5 g/dl (14.0-17.9); LYMPHOCYTES # (AUTO) 2.3 X10'3 (1.1-4.8); LYMPHOCYTES % (AUTO) 33.9 % (21-51); MEAN CORPUSCULAR HEMOGLOBIN 31.7 PG (27.0-31.0); MEAN CORPUSCULAR HGB CONC 34.9 g/dL (33.0-36.5); MEAN PLATELET VOLUME 7.2 FL (7.4-10.4); MONOCYTES # (AUTO) 0.6 X10'3 (0-0.9); MONOCYTES % (AUTO) 8.3 % (2-12); NEUTROPHILS # (AUTO) 3.6 X10'3 (1.8-7.7); NEUTROPHILS % (AUTO) 54.1 % (42-75); PLATELET COUNT 257 X10'3 (140-440); RED BLOOD COUNT 4.25 X10'6 (4.70-6.10); RED CELL DISTRIBUTION WIDTH 13.3 % (11.5-14.5); WHITE BLOOD COUNT 6.7 X10'3 (4.5-11.0)
[2023-12-16 13:10] LABS: ALANINE AMINOTRANSFERASE 70 U/L (12-78); ALBUMIN 3.8 G/DL (3.4-5.0); ALBUMIN/GLOBULIN RATIO 1.2 (1.1-1.5); ALKALINE PHOSPHATASE 67 IU/L (46-116); ANION GAP 13 (8-16); ASPARTATE AMINO TRANSFERASE 39 U/L (10-37); BILIRUBIN,TOTAL 0.7 MG/DL (0.1-1.0); BLOOD UREA NITROGEN 16 MG/DL (7-18); BUN/CREATININE RATIO 16.5 (10.0-20.0); CALCIUM 8.5 MG/DL (8.5-10.1); CHLORIDE 106 MMOL/L (99-107); CREATININE 0.97 MG/DL (0.60-1.10); GLUCOSE 96 MG/DL (70-104); POTASSIUM 3.6 MMOL/L (3.5-5.1); SODIUM 142 MMOL/L (135-145); TOTAL CARBON DIOXIDE 23.3 MMOL/L (24-32); TOTAL PROTEIN 7.1 G/DL (6.4-8.2); eCRCL 100 ML/MIN; eGFR 83 ML/MIN
[2023-12-16 13:19] LABS: PRO BRAIN NATRIURETIC PEPTIDE 169 PG/ML (0-125)
[2023-12-16] MEDS: hyDRALAzine 10mg tablet PO ONE (13:44)
[2023-12-16] MEDS: amLODIPine 5mg tablet PO ONE (13:45)
[2023-12-16 13:57] VITALS: BP 138/89; PULSE 77; RESP 16; TEMP 97.6; O2SAT 97
== END 2023-12-16 14:04 | disposition home or self-care (01) ==
LOC: ER 12:26
DX: I10 Essential (primary) hypertension (principal); F17.200 Nicotine dependence, unspecified, uncomplicated; Z79.899 Other long term (current) drug therapy
CPT/HCPCS: 36415; 71045; 80053; 83880; 84484; 85025; 93005; 99285

== ENCOUNTER 2023-12-29 23:21 | Emergency (ER) | payer BC ==
[~2023-12-29] VITALS: Ht 180.3 cm; Wt 81.8 kg
[2023-12-29 23:24] VITALS: TEMP 98
[2023-12-30] MEDS: LIDOcaine 1% W/epiNEPHrine 1:100,000 20ml vial IJ ONE (00:57)
[2023-12-30] MEDS ORDERED: SULF1TAB49 PO (03:27)
[2023-12-30 03:31] VITALS: BP 133/77; PULSE 78; RESP 14; O2SAT 98
[2023-12-30] MEDS: sulfamethoxazole/trimethoprim DS (800/160mg) tablet PO ONE (03:39)
== END 2023-12-30 05:02 | disposition home or self-care (01) ==
LOC: ER 23:22
DX: L02.411 Cutaneous abscess of right axilla (principal); L02.31 Cutaneous abscess of buttock; I10 Essential (primary) hypertension; Z79.899 Other long term (current) drug therapy
CPT/HCPCS: 10060; 99285

== ENCOUNTER 2024-04-14 00:09 | Emergency (ER) | payer BC ==
[~2024-04-14] VITALS: Ht 180.3 cm; Wt 85.9 kg
[2024-04-14 00:13] VITALS: TEMP 98.4
[2024-04-14 00:47] LABS: EOSINOPHILS # (AUTO) 0.3 X10'3 (0-0.9); EOSINOPHILS % (AUTO) 6.8 % (0-6); HEMATOCRIT 38.7 % (42.0-52.0); HEMOGLOBIN 13.6 g/dl (14.0-17.9); LYMPHOCYTES # (AUTO) 1.7 X10'3 (1.1-4.8); LYMPHOCYTES % (AUTO) 39.5 % (21-51); MEAN CORPUSCULAR HEMOGLOBIN 32.2 PG (27.0-31.0); MEAN CORPUSCULAR HGB CONC 35.1 g/dL (33.0-36.5); MEAN CORPUSCULAR VOLUME 91.8 FL (78-98); MEAN PLATELET VOLUME 7.1 FL (7.4-10.4); MONOCYTES # (AUTO) 0.5 X10'3 (0-0.9); NEUTROPHILS # (AUTO) 1.8 X10'3 (1.8-7.7); NEUTROPHILS % (AUTO) 41.7 % (42-75); PLATELET COUNT 243 X10'3 (140-440); RED BLOOD COUNT 4.22 X10'6 (4.70-6.10); RED CELL DISTRIBUTION WIDTH 12.9 % (11.5-14.5); WHITE BLOOD COUNT 4.4 X10'3 (4.5-11.0)
[2024-04-14 01:00] LABS: ALANINE AMINOTRANSFERASE 70 U/L (12-78); ALBUMIN 3.6 G/DL (3.4-5.0); ALBUMIN/GLOBULIN RATIO 1.1 (1.1-1.5); ALKALINE PHOSPHATASE 75 IU/L (46-116); ANION GAP 10 (8-16); ASPARTATE AMINO TRANSFERASE 35 U/L (10-37); BILIRUBIN,TOTAL 0.3 MG/DL (0.1-1.0); BLOOD UREA NITROGEN 18 MG/DL (7-18); BUN/CREATININE RATIO 17.8 (10.0-20.0); CALCIUM 8.4 MG/DL (8.5-10.1); CHLORIDE 106 MMOL/L (99-107); CREATININE 1.01 MG/DL (0.60-1.10); GLUCOSE 118 MG/DL (70-104); POTASSIUM 3.5 MMOL/L (3.5-5.1); SODIUM 141 MMOL/L (135-145); TOTAL CARBON DIOXIDE 25.3 MMOL/L (24-32); eCRCL 96 ML/MIN; eGFR 79 ML/MIN
[2024-04-14 01:08] LABS: PRO BRAIN NATRIURETIC PEPTIDE < 30 PG/ML (0-125)
[2024-04-14] MEDS: LORazepam 1 MG tablet PO ONE (03:20)
[2024-04-14 03:23] VITALS: BP 127/82; PULSE 93; RESP 17; O2SAT 96
== END 2024-04-14 03:23 | disposition home or self-care (01) ==
LOC: ER 00:09
DX: I10 Essential (primary) hypertension (principal); F41.9 Anxiety disorder, unspecified; Z79.899 Other long term (current) drug therapy
CPT/HCPCS: 36415; 71045; 80053; 83880; 84484; 85025; 93005; 99285

== ENCOUNTER 2024-06-27 19:13 | Emergency (ER) | payer OTHER | END 2024-06-27 19:53 | disposition left against medical advice (07) | LOC: ER 19:14 | DX: R07.9 Chest pain, unspecified (principal); Z53.21 Procedure and treatment not carried out due to patient leaving prior to being seen by health care provider ==

== ENCOUNTER → 2024-06-27 | Emergency (ER) | payer OTHER ==
[~2024-06-27] VITALS: Ht 180.3 cm; Wt 86.3 kg
[2024-06-27 20:30] VITALS: TEMP 97.8
[2024-06-27 21:08] LABS: BASOPHILS # (AUTO) 0.1 X10'3 (0-0.2); BASOPHILS % (AUTO) 0.9 % (0-1); EOSINOPHILS # (AUTO) 0.2 X10'3 (0-0.9); EOSINOPHILS % (AUTO) 3.7 % (0-6); HEMOGLOBIN 14.2 g/dl (14.0-17.9); LYMPHOCYTES # (AUTO) 2.5 X10'3 (1.1-4.8); LYMPHOCYTES % (AUTO) 42.5 % (21-51); MEAN CORPUSCULAR HGB CONC 34.6 g/dL (33.0-36.5); MEAN CORPUSCULAR VOLUME 92.3 FL (78-98); MEAN PLATELET VOLUME 7.4 FL (7.4-10.4); MONOCYTES # (AUTO) 0.6 X10'3 (0-0.9); MONOCYTES % (AUTO) 10.4 % (2-12); NEUTROPHILS # (AUTO) 2.5 X10'3 (1.8-7.7); NEUTROPHILS % (AUTO) 42.5 % (42-75); PLATELET COUNT 271 X10'3 (140-440); RED BLOOD COUNT 4.44 X10'6 (4.70-6.10); WHITE BLOOD COUNT 5.8 X10'3 (4.5-11.0)
[2024-06-27 21:17] LABS: ALANINE AMINOTRANSFERASE 104 U/L (12-78); ALBUMIN 4.4 G/DL (3.4-5.0); ALBUMIN/GLOBULIN RATIO 1.3 (1.1-1.5); ALKALINE PHOSPHATASE 73 IU/L (46-116); ANION GAP 12 (8-16); ASPARTATE AMINO TRANSFERASE 37 U/L (10-37); BILIRUBIN,TOTAL 0.7 MG/DL (0.1-1.0); BLOOD UREA NITROGEN 16 MG/DL (7-18); BUN/CREATININE RATIO 16.8 (10.0-20.0); CALCIUM 9.1 MG/DL (8.5-10.1); CHLORIDE 104 MMOL/L (99-107); CREATININE 0.95 MG/DL (0.60-1.10); GLUCOSE 101 MG/DL (70-104); POTASSIUM 3.5 MMOL/L (3.5-5.1); SODIUM 139 MMOL/L (135-145); TOTAL CARBON DIOXIDE 22.9 MMOL/L (24-32); TOTAL PROTEIN 7.7 G/DL (6.4-8.2); eCRCL 101 ML/MIN; eGFR 85 ML/MIN
[2024-06-27 21:25] LABS: PRO BRAIN NATRIURETIC PEPTIDE 48 PG/ML (0-125)
[2024-06-28 00:14] VITALS: BP 148/88; PULSE 54; RESP 16; O2SAT 96
== END | disposition home or self-care (01) ==
LOC: ER 20:28
DX: R07.89 Other chest pain (principal); I10 Essential (primary) hypertension; F41.9 Anxiety disorder, unspecified; Z79.899 Other long term (current) drug therapy
CPT/HCPCS: 36415; 71045; 80053; 83880; 84484; 85025; 93005; 99285

== ENCOUNTER 2024-08-25 17:42 | Emergency (ER) | payer BC, OTHER ==
[~2024-08-25] VITALS: Ht 180.3 cm; Wt 88.5 kg
[2024-08-25 17:51] VITALS: PULSE 66; RESP 18; TEMP 97.8; O2SAT 96
[2024-08-25 18:07] VITALS: BP 160/101
[2024-08-25 18:42] LABS: BASOPHILS % (AUTO) 0.8 % (0-1); EOSINOPHILS # (AUTO) 0.3 X10'3 (0-0.9); EOSINOPHILS % (AUTO) 4.5 % (0-6); HEMATOCRIT 40.8 % (42.0-52.0); HEMOGLOBIN 14.4 g/dl (14.0-17.9); LYMPHOCYTES # (AUTO) 2.2 X10'3 (1.1-4.8); LYMPHOCYTES % (AUTO) 38.6 % (21-51); MEAN CORPUSCULAR HEMOGLOBIN 32.2 PG (27.0-31.0); MEAN CORPUSCULAR HGB CONC 35.3 g/dL (33.0-36.5); MEAN CORPUSCULAR VOLUME 91.3 FL (78-98); MEAN PLATELET VOLUME 7.7 FL (7.4-10.4); MONOCYTES # (AUTO) 0.6 X10'3 (0-0.9); MONOCYTES % (AUTO) 10.5 % (2-12); NEUTROPHILS # (AUTO) 2.6 X10'3 (1.8-7.7); NEUTROPHILS % (AUTO) 45.6 % (42-75); PLATELET COUNT 227 X10'3 (140-440); RED BLOOD COUNT 4.47 X10'6 (4.70-6.10); RED CELL DISTRIBUTION WIDTH 13.4 % (11.5-14.5); WHITE BLOOD COUNT 5.8 X10'3 (4.5-11.0)
[2024-08-25 18:54] LABS: ALANINE AMINOTRANSFERASE 111 U/L (12-78); ALBUMIN 4.3 G/DL (3.4-5.0); ALBUMIN/GLOBULIN RATIO 1.4 (1.1-1.5); ALKALINE PHOSPHATASE 82 IU/L (46-116); ANION GAP 7 (8-16); ASPARTATE AMINO TRANSFERASE 49 U/L (10-37); BILIRUBIN,TOTAL 0.6 MG/DL (0.1-1.0); BLOOD UREA NITROGEN 19 MG/DL (7-18); BUN/CREATININE RATIO 20.2 (10.0-20.0); CALCIUM 8.9 MG/DL (8.5-10.1); CHLORIDE 100 MMOL/L (99-107); CREATININE 0.94 MG/DL (0.60-1.10); GLUCOSE 95 MG/DL (70-104); SODIUM 137 MMOL/L (135-145); TOTAL CARBON DIOXIDE 29.9 MMOL/L (24-32); TOTAL PROTEIN 7.4 G/DL (6.4-8.2); eCRCL 102 ML/MIN; eGFR 86 ML/MIN
[2024-08-25 19:03] LABS: PRO BRAIN NATRIURETIC PEPTIDE 41 PG/ML (0-125)
[2024-08-25 19:04] LABS: POTASSIUM 3.1 MMOL/L (3.5-5.1)
== END 2024-08-25 22:05 | disposition left against medical advice (07) ==
LOC: ER 17:42
DX: I10 Essential (primary) hypertension (principal); Z53.21 Procedure and treatment not carried out due to patient leaving prior to being seen by health care provider
CPT/HCPCS: 36415; 71045; 80053; 83880; 84484; 85025; 93005

== ENCOUNTER 2024-08-26 17:59 | Emergency (ER) | payer BC ==
[~2024-08-26] VITALS: Ht 180.3 cm; Wt 86.8 kg
[2024-08-26 18:13] VITALS: TEMP 97.8
[2024-08-26 18:38] LABS: BASOPHILS % (AUTO) 0.8 % (0-1); EOSINOPHILS # (AUTO) 0.3 X10'3 (0-0.9); EOSINOPHILS % (AUTO) 4.4 % (0-6); HEMATOCRIT 40.4 % (42.0-52.0); HEMOGLOBIN 14.5 g/dl (14.0-17.9); LYMPHOCYTES # (AUTO) 2.4 X10'3 (1.1-4.8); LYMPHOCYTES % (AUTO) 41.7 % (21-51); MEAN CORPUSCULAR HEMOGLOBIN 32.4 PG (27.0-31.0); MEAN CORPUSCULAR HGB CONC 35.8 g/dL (33.0-36.5); MEAN CORPUSCULAR VOLUME 90.6 FL (78-98); MEAN PLATELET VOLUME 7.3 FL (7.4-10.4); MONOCYTES # (AUTO) 0.5 X10'3 (0-0.9); MONOCYTES % (AUTO) 9.4 % (2-12); NEUTROPHILS # (AUTO) 2.5 X10'3 (1.8-7.7); NEUTROPHILS % (AUTO) 43.7 % (42-75); PLATELET COUNT 252 X10'3 (140-440); RED BLOOD COUNT 4.46 X10'6 (4.70-6.10); RED CELL DISTRIBUTION WIDTH 12.9 % (11.5-14.5); WHITE BLOOD COUNT 5.7 X10'3 (4.5-11.0)
[2024-08-26 18:52] VITALS: BP 159/97; PULSE 64; RESP 14; O2SAT 98
[2024-08-26 19:03] LABS: ALANINE AMINOTRANSFERASE 123 U/L (12-78); ALBUMIN 4.4 G/DL (3.4-5.0); ALBUMIN/GLOBULIN RATIO 1.3 (1.1-1.5); ALKALINE PHOSPHATASE 82 IU/L (46-116); ANION GAP 8 (8-16); BILIRUBIN,TOTAL 0.6 MG/DL (0.1-1.0); BLOOD UREA NITROGEN 19 MG/DL (7-18); BUN/CREATININE RATIO 17.8 (10.0-20.0); CALCIUM 9.3 MG/DL (8.5-10.1); CHLORIDE 101 MMOL/L (99-107); CREATININE 1.07 MG/DL (0.60-1.10); POTASSIUM 3.7 MMOL/L (3.5-5.1); PRO BRAIN NATRIURETIC PEPTIDE 48 PG/ML (0-125); SODIUM 140 MMOL/L (135-145); TOTAL CARBON DIOXIDE 31.2 MMOL/L (24-32); TOTAL PROTEIN 7.7 G/DL (6.4-8.2); eCRCL 90 ML/MIN; eGFR 74 ML/MIN
[2024-08-26 19:12] LABS: ASPARTATE AMINO TRANSFERASE 54 U/L (10-37); GLUCOSE 105 MG/DL (70-104)
== END 2024-08-27 00:54 | disposition left against medical advice (07) ==
LOC: ER 17:59
DX: I10 Essential (primary) hypertension (principal); Z53.21 Procedure and treatment not carried out due to patient leaving prior to being seen by health care provider
CPT/HCPCS: 36415; 71045; 80053; 83880; 84484; 85025; 93005

== ENCOUNTER 2024-10-30 10:27 | Emergency (ER) | payer BC ==
[~2024-10-30] VITALS: Ht 180.3 cm; Wt 86.0 kg
[~2024-10-30 10:27] MED LIST changes: -GUAN1TAB PO; +GUAN1TAB62 PO
[2024-10-30 10:28] VITALS: TEMP 98.2
--- NOTE | 2024-10-30 10:37 | ELECTROCARDIOGRAPH REPORT ---
[facility] Test Date: 2024-10-30 Test Time: 10:35:45 Pat Name: KALEB HAYNES Department: EMERGENCY ROOM [id number] Room: Gender: M Project Construction Manager: ALEJANDRO : 1975 Requested By: ELVIN SINGLETON Order Number: [id number] Reading MD: Dr. Tony Blackwell Measurements Intervals [place] Rate: 79 P: 28 KS: 209 QRS: -34 QRSD: 158 T: 108 QT: 411 QTc: 472 Interpretive Statements Sinus rhythm Borderline prolonged KS interval Left bundle branch block Baseline wander in lead(s) I,II,aVR Electronically Signed On 10-30-2024 17:20:[address] Tony Blackwell Please click the below link to view image of tracing.
[2024-10-30 10:54] LABS: EOSINOPHILS # (AUTO) 0.1 X10'3 (0-0.9); EOSINOPHILS % (AUTO) 1.9 % (0-6); HEMATOCRIT 36.7 % (42.0-52.0); LYMPHOCYTES # (AUTO) 1.5 X10'3 (1.1-4.8); LYMPHOCYTES % (AUTO) 29.5 % (21-51); MEAN CORPUSCULAR HEMOGLOBIN 31.7 PG (27.0-31.0); MEAN CORPUSCULAR HGB CONC 35.4 g/dL (33.0-36.5); MEAN CORPUSCULAR VOLUME 89.8 FL (78-98); MONOCYTES # (AUTO) 0.4 X10'3 (0-0.9); MONOCYTES % (AUTO) 9.1 % (2-12); NEUTROPHILS # (AUTO) 2.9 X10'3 (1.8-7.7); NEUTROPHILS % (AUTO) 58.5 % (42-75); PLATELET COUNT 280 X10'3 (140-440); RED BLOOD COUNT 4.09 X10'6 (4.70-6.10); RED CELL DISTRIBUTION WIDTH 12.7 % (11.5-14.5); WHITE BLOOD COUNT 4.9 X10'3 (4.5-11.0)
--- NOTE | 2024-10-30 11:06 | RADIOLOGY REPORT ---
EXAM: DI CHEST,SINGLE VIEW HISTORY: CP COMPARISON: DI CHEST,SINGLE VIEW on DOS: 08/26/24, DI CHEST,SINGLE VIEW on DOS: 08/25/24, DI CHEST,SINGLE VIEW on DOS: 06/27/24, DI CHEST,SINGLE VIEW on DOS: 06/20/24, DI CHEST,SINGLE VIEW on DOS: 04/14/24 TECHNIQUE: PA upright view of the chest was performed. FINDINGS: No pneumothorax, consolidative infiltrates, or pulmonary edema. The heart is not enlarged. There is s light thoracic dextroscoliosis. IMPRESSION: No acute intrathoracic process.
[2024-10-30 11:09] LABS: ALANINE AMINOTRANSFERASE 83 U/L (12-78); ALBUMIN 4.1 G/DL (3.4-5.0); ALBUMIN/GLOBULIN RATIO 1.3 (1.1-1.5); ALKALINE PHOSPHATASE 70 IU/L (46-116); ANION GAP 12 (8-16); ASPARTATE AMINO TRANSFERASE 47 U/L (10-37); BILIRUBIN,TOTAL 0.5 MG/DL (0.1-1.0); BLOOD UREA NITROGEN 13 MG/DL (7-18); BUN/CREATININE RATIO 14.6 (10.0-20.0); CALCIUM 8.7 MG/DL (8.5-10.1); CHLORIDE 98 MMOL/L (99-107); CREATININE 0.89 MG/DL (0.60-1.10); GLUCOSE 102 MG/DL (70-104); POTASSIUM 3.6 MMOL/L (3.5-5.1); SODIUM 136 MMOL/L (135-145); TOTAL CARBON DIOXIDE 26.2 MMOL/L (24-32); TOTAL PROTEIN 7.2 G/DL (6.4-8.2); eCRCL 108 ML/MIN; eGFR > 90 ML/MIN
[2024-10-30 11:18] LABS: PRO BRAIN NATRIURETIC PEPTIDE 72 PG/ML (0-125)
[2024-10-30] MEDS: normal saline 1000ml 1,000 ML IV ONE (11:45)
--- NOTE | 2024-10-30 12:37 | Physician Documentation ---
History of Present Illness ~ Chief Complaint: Dizziness Stated Complaint: LIGHT HEADED Time Seen by MD: 11:23 Primary Medical Doctor: STEFANO [facility]E [facility] Triage note summary presenting for lightheadedness he was out fishing yesterday and drinking heavily thinks he may be dehydrated he reports being followed by Dr. Melgar. 49-year-old male history of hypertension, left bundle branch block presenting for chest discomfort History provided by patient he reports he was out yesterday all day fishing he drank 8 cores light which is abnormal for him. He woke up feeling hung over but also felt a little off a little lightheaded/dizzy and some mild chest discomfort. It checked his blood pressure in the systolic was greater than 200. He is now feeling better after IV fluids and denies any further chest pain or shortness of breath. Medication Reconciliation Allergies: Coded Allergies: No Known Allergies (Unverified , 08/25/24) Scheduled Docosahexanoic Acid/Epa (Fish Oil Softgel), 2,000 MG PO DAILY, (Reported) Hydrochlorothiazide (Hydrochlorothiazide), 1 TAB PO DAILY Multivitamin (Multi Vitamin Daily), 1 TAB PO DAILY, (Reported) Nitroglycerin Patch 0.1MG/HR* (Nitro-Dur Patch 0.1MG/HR*), 1 PATCH TOP DAILY, (Reported) Ubidecarenone (Co Q-10), 0.5 CAP PO BID, (Reported) Valsartan/Hydrochlorothiazide (Valsartan-Hctz 320-25 Mg Tab), 1 TAB PO DAILY Miscellaneous Medications Guanfacine Hcl (Guanfacine Hcl), 1 MG PO, (Reported) Past Medical History Past Medical History: Hypertension, Extremity Fracture, Anxiety Past Surgical History: noncontributory Patient History: FH: diabetes mellitus FATHER FAMILY/OTHER, Name: Uncle Smoking Status: Current some day smoker Alcohol Use: Rarely Drug Use: none Lives with: Spouse Lives In: Home Physical Exam Vital Signs: Temperature: 98.2, Source: Oral, Heart Rate: 71, Respiratory Rate: 16, BP: 163/100, Pulse Oximetry: 100, Weight: 86.000 Oxygen Flow Rate: 0 Progress Progress Note Labs independently interpreted AST 47 ALT 83 Results/Orders Reviewed/noted all lab results: Yes Results/Orders Orders - ELVIN SINGLETON MD Chest,Single View (10/30/24 10:32) Monitor (10/30/24 10:32) Saline Lock (10/30/24 10:32) Oxygen (10/30/24 10:32) Hs Troponin I W Calculations (10/30/24 13:32) Completed Orders - ELVIN SINGLETON MD Chest,Single View (10/30/24 10:32) Cbc/Diff (10/30/24 10:32) PBNP (10/30/24 10:32) Electrocardiogram (10/30/24 10:32) CMP (10/30/24 10:32) Hs Troponin I W Calculations (10/30/24 10:32) Hs Troponin I W Calculations (10/30/24 12:32) Medications Received in ER Medications (Trade) Dose Ordered Sig/Birgit Route PRN Reason Start Time Stop Time Status Last Admin Dose Admin Sodium Chloride 1,000 ml @ 1,000 mls/hr ONCE ONCE IV 10/30/24 11:25 10/30/24 12:24 DC 10/30/24 11:45 1,000 MLS/HR Vital Signs 10/30/24 10/30/24 10/30/24 10/30/24 10:28 10:42 11:20 11:24 Temp 98.2 Pulse 76 82 71 Resp 16 16 B/P (MAP) 175/91 140/90 (107) 163/100 (121) Pulse Ox 98 99 100 O2 Flow Rate 0 0 0 Laboratory Tests Test 10/30/24 10:42 10/30/24 12:51 White Blood Count 4.9 Red Blood Count 4.09 L Hemoglobin 13.0 L Hematocrit 36.7 L Mean Corpuscular Volume 89.8 Mean Corpuscular Hemoglobin 31.7 H Mean Corpuscular Hemoglobin Concent 35.4 Red Cell Distribution Width 12.7 Platelet Count 280 Mean Platelet Volume 7.0 L Neutrophils (%) (Auto) 58.5 Lymphocytes (%) (Auto) 29.5 Monocytes (%) (Auto) 9.1 Eosinophils (%) (Auto) 1.9 Basophils (%) (Auto) 1.0 Neutrophils # (Auto) 2.9 Lymphocytes # (Auto) 1.5 Monocytes # (Auto) 0.4 Eosinophils # (Auto) 0.1 Basophils # (Auto) 0.0 CBC Comment Sodium Level 136 Potassium Level 3.6 Chloride Level 98 L Carbon Dioxide Level 26.2 Anion Gap 12 Blood Urea Nitrogen 13 Creatinine 0.89 Estimated GFR/1.73 m2 > 90 BUN/Creatinine Ratio 14.6 Glucose Level 102 Calcium Level 8.7 Total Bilirubin 0.5 Aspartate Amino Transf (AST/SGOT) 47 H Alanine Aminotransferase (ALT/SGPT) 83 H Alkaline Phosphatase 70 Troponin I High Sensitivity 6 6 Pro-B-Type Natriuretic Peptide 72 Total Protein 7.2 Albumin 4.1 Globulin 3.1 Albumin/Globulin Ratio 1.3 Chemistry Comments Troponin I High Sens Percent Delta 0 Troponin I Hi Sens Absolute Change 0 EKG/XRAY/CT/US/VASC/MRI EKG : Additional Comment I independently interpreted EKG time 10:35 a.m. indication dizziness normal sinus rhythm, first-degree heart block, left axis deviation, left bundle branch block no concordant ST-elevation or depression Medical Decision Making Additional info obtained from: old records Findings Reviewed cardiology consultation note October 2023 chest pain shortness of breath hyperlipidemia hypertension Reviewed Lexiscan study November 13, 2023 normal, ejection fraction 54% Additional Information Acute coronary syndrome, pulmonary embolism, other causes of chest pain Departure Disposition: HOME / SELF CARE / HOMELESS Impression: Primary Impression: Dehydration Additional Instructions: Your blood work was reassuring. This is likely from heavy alcohol use. Consider reducing your alcohol intake start taking your blood pressure once daily. If it remains elevated please discuss further with your primary care doctor Referrals: NO PRIMARY CARE PROVIDER (PCP) Signature Scribe Signature: [email or web address] Attestation: ELVIN Jensen MD October 30, 2024 12:37
[2024-10-30 14:11] VITALS: BP 147/86; PULSE 68; RESP 16; O2SAT 100
== END 2024-10-30 14:12 | disposition home or self-care (01) ==
LOC: ER 10:27
DX: E86.0 Dehydration (principal); I10 Essential (primary) hypertension; F41.9 Anxiety disorder, unspecified; F17.200 Nicotine dependence, unspecified, uncomplicated; Z79.899 Other long term (current) drug therapy
CPT/HCPCS: 36415; 71045; 80053; 83880; 84484; 85025; 93005; 96360; 96361; 99285; J7030